=== PATIENT | male | born 1945 | race Caucasian/White ===

== ENCOUNTER 2020-07-06 19:27 | Inpatient (IN) | payer MEDICARE, OTHER ==
[2020-07-06] VITALS: BP 113/63
[~2020-07-06] VITALS: Ht 172.7 cm; Wt 66.0 kg
--- NOTE | 2020-07-06 19:48 | NUR ---
Patient BIB [facility] from a SNF for c/o CP+SOB. On the field patient was given nitro spray x1, and aspirin 162mg PO with no relief. Patient A/Ox4. Is able to speak but in short sentences due to SOB. Patient RR tachypneic, labored, and shallow. Reports dull, left sided CP that occasionally radiates to the right. Denies any n/v/d, or any gu distress. Patient in bed at lowest position, sr upx2, call light within reach. Safety precautions implemented per protocol.
[2020-07-06] MEDS ORDERED: ACETAMINOPHEN ES 500 MG TABLET PO ONE (20:00)
[2020-07-06] MEDS ORDERED: IV NS 1000 ML 1,000 ML IV ONE (20:00)
[2020-07-06] MEDS ORDERED: BENZONATATE 100 MG CAPSULE PO ONE (20:00)
[2020-07-06 20:07] LABS: BASOPHILS % (AUTO) 0.4 % (0.0-2.0); EOSINOPHILS # (AUTO) 0.1 K/uL (0.0-0.7); EOSINOPHILS % (AUTO) 1.4 % (0.0-7.0); HEMATOCRIT 33.1 % (36.7-47.1); HEMOGLOBIN 11.2 g/dL (12.5-16.3); LYMPHOCYTES # (AUTO) 1.4 K/uL (20.0-40.0); LYMPHOCYTES % (AUTO) 18.7 % (20.5-51.5); MEAN CORPUSCULAR HEMOGLOBIN 31.8 uug (23.8-33.4); MEAN CORPUSCULAR HGB CONC 34 g/dL (32.5-36.3); MEAN CORPUSCULAR VOLUME 94.1 fL (73.0-96.2); MONOCYTES % (AUTO) 13.2 % (0.0-11.0); NEUTROPHILS # (AUTO) 4.9 K/uL (1.8-8.9); NEUTROPHILS % (AUTO) 66.3 % (38.5-71.5); PLATELET COUNT (AUTO) 295 K/uL (152-348); RED BLOOD CELL COUNT(AUTO) 3.52 MIL/uL (4.06-5.63); WHITE BLOOD COUNT (AUTO) 7.4 K/uL (3.6-10.2)
[2020-07-06] MEDS ORDERED: ACETAMINOPHEN ES 500 MG TABLET ONE (20:09)
[2020-07-06] MEDS ORDERED: BENZONATATE 100 MG CAPSULE ONE (20:09)
[2020-07-06] MEDS ORDERED: ASPI81TA31 PO (20:11)
[2020-07-06] MEDS ORDERED: NA P133E RC (20:11)
[2020-07-06] MEDS ORDERED: MULT-213 PO (20:11)
[2020-07-06] MEDS ORDERED: BISA10SU61 RC (20:11)
[2020-07-06] MEDS ORDERED: TAMS-3 PO (20:11)
[2020-07-06] MEDS ORDERED: PANT40TA2 PO (20:11)
[2020-07-06] MEDS ORDERED: FINA5TAB11 PO (20:11)
[2020-07-06] MEDS ORDERED: PRED5DRO4 LEFTEYE (20:11)
[2020-07-06] MEDS ORDERED: ASCO500C18 PO (20:11)
[2020-07-06] MEDS ORDERED: SENN-86 PO (20:11)
[2020-07-06] MEDS ORDERED: CHOL10002 PO (20:11)
[2020-07-06] MEDS ORDERED: ACET-2154 PO (20:11)
[2020-07-06] MEDS ORDERED: KETO10DR3 RIGHTEYE (20:11)
[2020-07-06] MEDS ORDERED: METO25TA6 PO (20:11)
[2020-07-06] MEDS ORDERED: HYPR15DR4 OP (20:11)
[2020-07-06] MEDS ORDERED: DOCU100C36 PO (20:11)
[2020-07-06] MEDS ORDERED: BENZ-13 PO (20:11)
[2020-07-06] MEDS ORDERED: ZINC1CAP2 PO (20:11)
[2020-07-06] MEDS ORDERED: ENOX40DI SQ (20:11)
[2020-07-06] MEDS ORDERED: ALBU18HF2 INH (20:11)
[2020-07-06] MEDS ORDERED: MAGN400O6 PO (20:11)
[2020-07-06] MEDS ORDERED: OLOP2.5D12 LEFTEYE (20:11)
[2020-07-06] MEDS ORDERED: FLUT16SP NS (20:11)
[2020-07-06] MEDS ORDERED: atropine sulfate RIGHTEYE (20:11)
[2020-07-06] MEDS ORDERED: MONT10TA33 PO (20:11)
[2020-07-06 20:18] LABS: CREATININE 1.3 mg/dL (0.6-1.3); POTASSIUM 4.7 mmol/L (3.5-5.1)
[2020-07-06] MEDS ORDERED: CEFTRIAXONE 1 G in IV DEXTROSE 5% 50 ML IV ONE (20:30)
[2020-07-06] MEDS ORDERED: DEXAMETHASONE SOD PHOSPHATE 4 MG INJ IV ONE (20:30)
[2020-07-06] MEDS ORDERED: AZITHROMYCIN IV 500 MG in IV DEXTROSE 5% 250 ML IV ONE (20:30)
[2020-07-06 20:38] LABS: BILIRUBIN,TOTAL 0.7 mg/dL (0.2-1.0); TOTAL PROTEIN, SERUM 6.7 g/dL (6.4-8.2)
--- NOTE | 2020-07-06 21:00 | NUR ---
Noticed that patient had a hx of COPD, NRB removed immediately. Patient was on 10L NRB, and was downgraded to NC 3L. Patient oxygen saturation maintained well over 92%.
[2020-07-06] MEDS ORDERED: CEFTRIAXONE /D5W 50ML IVPB **ER PYXIS IV ONE (21:10)
[2020-07-06] MEDS ORDERED: AZITHROMYCIN 500MG/ D5W 250ML IVPB **ER PYXIS ONLY IV ONE (21:10)
[2020-07-06] MEDS ORDERED: DEXAMETHASONE SOD PHOSPHATE 4 MG INJ ONE (21:11)
[2020-07-06] MEDS ORDERED: ACETAMINOPHEN 325 MG TABLET PO PRN (21:30)
[2020-07-06] MEDS ORDERED: ALBUTEROL SULFATE 8 GM HFA.AER.AD IH PRN (21:30)
[2020-07-06] MEDS ORDERED: ONDANSETRON 4 MG/2 ML VIAL IV PRN (21:30)
--- NOTE | 2020-07-06 21:33 | NUR ---
Report given to ALAN Maher patient will be going to room 211
[2020-07-06] MEDS ORDERED: BENZONATATE 100 MG CAPSULE PO PRN (21:45)
[2020-07-06] MEDS ORDERED: BISACODYL 10 MG SUPP.RECT RC PRN (21:45)
--- NOTE | 2020-07-06 21:50 | NUR ---
Received patient via gurney from ED admitted for COVID 19 PNA. Pt AAOx4. No s/s of acute distress at this time. Pt on 3L NC O2 @ 96%, SOB upon exertion. 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 Left AC IV patent and intact. Pt stated they use eye drops for glaucoma and s/p cataract extraction. Notified Dr. Bell for medication reconciliation. Isolation measures initiated. Bed locked in low position, call light within reach, safety measures in place.
--- NOTE | 2020-07-06 22:21 | NUR ---
Patient transported to TELE in stable condition.
[2020-07-06] MEDS ORDERED: CEFEPIME HCL 2 G in IV DEXTROSE 5% 100 ML IV SCH (22:34)
[2020-07-06] MEDS ORDERED: PRED5DRO24 LEFTEYE (23:27)
[2020-07-06] MEDS ORDERED: KETO5DRO9 RIGHTEYE (23:27)
[2020-07-06] MEDS ORDERED: VANCOMYCIN IV 1,500 MG in IV DEXTROSE 5% 500 ML IV ONE (23:59)
[2020-07-07] VITALS: BP 113/63
[2020-07-07] MEDS ORDERED: CEFEPIME HCL 1 G VIAL ONE (00:04)
[2020-07-07] MEDS ORDERED: VANCOMYCIN 1000 MG VIAL ONE (00:04)
[2020-07-07] MEDS ORDERED: VANCOMYCIN HCL 500 MG VIAL ONE (00:04)
[2020-07-07 04:00] VITALS: BP 92/52
--- NOTE | 2020-07-07 06:30 | NUR ---
Pt resting in bed AAOx3-4. No s/s of acute distress. Pt on 3L NC with O2 @ 92%. Pt stand by assist with BSC, while doing rounds pt found moving down in bed to disable bed alarm. Reinforced patient teaching for safety measures and to use call light for assistance. Endorsed to oncoming shift. NSR on tele. Left FA IV patent and intact. Safety measures and isolation precautions in place.
[2020-07-07 06:52] LABS: BASOPHILS % (AUTO) 0.2 % (0.0-2.0); HEMATOCRIT 32.2 % (36.7-47.1); HEMOGLOBIN 11.2 g/dL (12.5-16.3); LYMPHOCYTES # (AUTO) 0.7 K/uL (20.0-40.0); LYMPHOCYTES % (AUTO) 14.2 % (20.5-51.5); MEAN CORPUSCULAR HEMOGLOBIN 32.5 uug (23.8-33.4); MEAN CORPUSCULAR HGB CONC 35 g/dL (32.5-36.3); MEAN CORPUSCULAR VOLUME 93.8 fL (73.0-96.2); MONOCYTES # (AUTO) 0.1 K/uL (2.0-10.0); MONOCYTES % (AUTO) 3.1 % (0.0-11.0); NEUTROPHILS # (AUTO) 3.9 K/uL (1.8-8.9); NEUTROPHILS % (AUTO) 82.5 % (38.5-71.5); PLATELET COUNT (AUTO) 319 K/uL (152-348); RED BLOOD CELL COUNT(AUTO) 3.43 MIL/uL (4.06-5.63); WHITE BLOOD COUNT (AUTO) 4.7 K/uL (3.6-10.2)
[2020-07-07 07:12] LABS: BILIRUBIN,TOTAL 0.3 mg/dL (0.2-1.0); CREATININE 1.1 mg/dL (0.6-1.3); POTASSIUM 4.5 mmol/L (3.5-5.1); TOTAL PROTEIN, SERUM 6.7 g/dL (6.4-8.2)
[2020-07-07] MEDS ORDERED: ALBUTEROL SULFATE 2.5 MG/ 0.5 ML NEBU NEB PRN (07:15)
[2020-07-07 07:53] VITALS: BP 104/62
--- NOTE | 2020-07-07 08:02 | NUR ---
Received in bed, awake and conversant. ON 3Lpm via nc. O2 saturation noted 93%. No acute distress noted. Bed kept low. Patient encouraged to ask for assistance. Call light kept within reach. No complaints at this time. Will continue to monitor.
[2020-07-07] MEDS: BLOOD SUGAR DIAGNOSTIC 1 EACH STRIP VI SCH ×4 (08:30→20:35)
[2020-07-07] MEDS ORDERED: DEXTROSE 50% 50 ML DISP.SYRIN IV PRN (08:30)
[2020-07-07] MEDS: FINASTERIDE 5 MG TABLET PO SCH (08:36)
[2020-07-07] MEDS: CHOLECALCIFEROL 1,000 UNIT TABLET PO SCH (08:36)
[2020-07-07] MEDS: METOPROLOL TARTRATE 25 MG TABLET PO SCH ×2 (08:36→20:40)
[2020-07-07] MEDS: TAMSULOSIN HCL 0.4 MG CAP.SR.24H PO SCH (08:36)
[2020-07-07] MEDS: ASPIRIN 81 MG TAB.CHEW PO SCH (08:37)
[2020-07-07] MEDS: DOCUSATE SODIUM 100 MG CAPSULE PO SCH ×2 (08:37→16:53)
[2020-07-07] MEDS: ZINC SULFATE 220 MG CAPSULE PO SCH (08:37)
[2020-07-07] MEDS: ENOXAPARIN SODIUM 40 MG/0.4 ML DISP.SYRIN SQ SCH (08:39)
[2020-07-07] MEDS ORDERED: DEXAMETHASONE SOD PHOSPHATE 4 MG INJ IV SCH (09:00)
[2020-07-07] MEDS ORDERED: FLUTICASONE PROP NASAL SPRAY 16 GM BOTTLE NS SCH (09:00)
[2020-07-07 11:00] VITALS: BP 123/64
--- NOTE | 2020-07-07 11:10 | NUR ---
Patient on 3Lpm via nc. Alert and oriented, able to make needs known. PT initiated exercises at edge of bed with min assist but patient unable to tolerate, desaturated to 88% and noted with coughing episodes. Patient kept in bed. Per PT will follow up tomorrow. Patient encouraged to call for assistance. He verbalized understanding. Call light placed within reach. O2 saturation went up to 91%. Will continue to monitor.
[2020-07-07] MEDS: INSULIN REGULAR, HUMAN 300 UNIT/3 ML VIAL SQ PRN ×3 (12:15→20:37)
[2020-07-07] MEDS: FLUTICASONE PROP NASAL SPRAY 16 GM BOTTLE NS SCH (13:19)
[2020-07-07] MEDS: DEXAMETHASONE SOD PHOSPHATE 4 MG INJ IV SCH ×2 (14:15→22:28)
[2020-07-07] MEDS: VANCOMYCIN IV 750 MG in IV DEXTROSE 5% 250 ML IV SCH (14:16)
[2020-07-07 14:31] VITALS: BP 122/71
--- NOTE | 2020-07-07 19:41 | NUR ---
Patient is resting in bed. No sign of distress noted. All medications given as ordered. Safety precautions are in place. Will endorse to oncoming nurse.
[2020-07-07 20:00] VITALS: BP 128/67
[2020-07-07] MEDS: OLOPATADINE 0.1% OPHT DROP 5 ML BOTTLE OP SCH (20:31)
[2020-07-07] MEDS: prednisoLONE ACET 1% OPHT DROP 5 ML BOTTLE OP SCH (20:31)
[2020-07-07] MEDS: ATROPINE SULFATE 1% OPHT DROP 2 ML OP SCH (20:31)
[2020-07-07] MEDS: SENNOSIDES/DOCUSATE SODIUM TABLET PO SCH (20:34)
[2020-07-07] MEDS: MONTELUKAST SODIUM 10 MG TABLET PO SCH (20:35)
[2020-07-07] MEDS: MIRALAX 17 GM POWD.PACK PO PRN (20:40)
[2020-07-07] MEDS ORDERED: KETOTIFEN OP SCH (21:00)
[2020-07-07] MEDS: CEFEPIME HCL 2 G in IV DEXTROSE 5% 100 ML IV SCH (22:28)
[2020-07-08] VITALS: BP 105/52
[2020-07-08] MEDS: VANCOMYCIN IV 750 MG in IV DEXTROSE 5% 250 ML IV SCH ×2 (02:20→14:00)
[2020-07-08 04:12] VITALS: BP 112/63
[2020-07-08] MEDS: DEXAMETHASONE SOD PHOSPHATE 4 MG INJ IV SCH ×3 (06:32→21:20)
[2020-07-08] MEDS: PANTOPRAZOLE SODIUM 40 MG TABLET.DR PO SCH (06:32)
[2020-07-08 06:58] LABS: HEMATOCRIT 34.7 % (36.7-47.1); HEMOGLOBIN 11.6 g/dL (12.5-16.3); LYMPHOCYTES # (AUTO) 1.6 K/uL (20.0-40.0); LYMPHOCYTES % (AUTO) 8.6 % (20.5-51.5); MEAN CORPUSCULAR HEMOGLOBIN 31.4 uug (23.8-33.4); MEAN CORPUSCULAR HGB CONC 33 g/dL (32.5-36.3); MEAN CORPUSCULAR VOLUME 93.9 fL (73.0-96.2); MONOCYTES % (AUTO) 5.5 % (0.0-11.0); NEUTROPHILS # (AUTO) 15.6 K/uL (1.8-8.9); NEUTROPHILS % (AUTO) 85.9 % (38.5-71.5); PLATELET COUNT (AUTO) 437 K/uL (152-348); RED BLOOD CELL COUNT(AUTO) 3.69 MIL/uL (4.06-5.63); WHITE BLOOD COUNT (AUTO) 18.2 K/uL (3.6-10.2)
[2020-07-08 07:11] LABS: CREATININE 1.3 mg/dL (0.6-1.3); MAGNESIUM 2.4 mg/dL (1.8-2.4); PHOSPHOROUS 3.2 mg/dL (2.5-4.9); POTASSIUM 4.6 mmol/L (3.5-5.1); URIC ACID 5.4 mg/dL (3.5-7.2)
[2020-07-08 07:23] LABS: THYROID STIMULATING HORMONE 0.866 mIU/mL (0.358-3.740)
[2020-07-08] MEDS: BLOOD SUGAR DIAGNOSTIC 1 EACH STRIP VI SCH ×4 (07:30→21:09)
[2020-07-08] MEDS: FINASTERIDE 5 MG TABLET PO SCH (08:00)
[2020-07-08] MEDS: DOCUSATE SODIUM 100 MG CAPSULE PO SCH ×2 (08:00→16:23)
[2020-07-08] MEDS: CHOLECALCIFEROL 1,000 UNIT TABLET PO SCH (08:00)
[2020-07-08] MEDS: ASPIRIN 81 MG TAB.CHEW PO SCH (08:01)
[2020-07-08] MEDS: TAMSULOSIN HCL 0.4 MG CAP.SR.24H PO SCH (08:01)
[2020-07-08] MEDS: ZINC SULFATE 220 MG CAPSULE PO SCH (08:01)
[2020-07-08] MEDS: METOPROLOL TARTRATE 25 MG TABLET PO SCH ×2 (08:10→21:17)
[2020-07-08] MEDS: ENOXAPARIN SODIUM 40 MG/0.4 ML DISP.SYRIN SQ SCH (08:12)
[2020-07-08] MEDS: INSULIN REGULAR, HUMAN 300 UNIT/3 ML VIAL SQ PRN ×4 (08:13→21:18)
[2020-07-08] MEDS: FLUTICASONE PROP NASAL SPRAY 16 GM BOTTLE NS SCH (08:24)
[2020-07-08] MEDS: OLOPATADINE 0.1% OPHT DROP 5 ML BOTTLE OP SCH ×2 (08:24→21:17)
[2020-07-08] MEDS: prednisoLONE ACET 1% OPHT DROP 5 ML BOTTLE OP SCH ×2 (08:25→21:17)
[2020-07-08] MEDS: MIRALAX 17 GM POWD.PACK PO PRN ×2 (08:33→11:11)
[2020-07-08] MEDS ORDERED: prednisoLONE ACET 1% OPHT DROP 5 ML BOTTLE OP SCH (09:00)
[2020-07-08] MEDS ORDERED: OLOPATADINE 0.1% OPHT DROP 5 ML BOTTLE OP SCH (09:00)
[2020-07-08] MEDS ORDERED: POLYVINYL ALCOHOL OPHT DROPS 15 ML BOTTLE EACHEYE PRN (09:15)
[2020-07-08 09:59] LABS: ABG HCO3 18.8 mmol/L; ABG PCO2 27.6 mmHg (35.0-45.0); ABG PH 7.451 (7.350-7.450); ABG PO2 60.7 mmHg (75.0-100.0); ABG SITE RIGHT BRACHIAL; ABG TOTAL HEMOGLOBIN 11.5 G/dL (13.5-18.0); COHb 0.7 % (0.5-1.5); MetHb 0.4 % (0.0-1.5); O2Hb 90.4 % (94.0-97.0); VENT MODE Nasal Cannula
--- NOTE | 2020-07-08 10:39 | NUR ---
RECEIVED PATIENT AWAKE, ALERT AND ORIENTED X 3. VSS. SR ON MONITOR. ON 3L NC, SATURATION 92-93%. CONTINENT OF B/B. PATIENT ABLE TO AMBULATE WITH ASSISTANCE TO RESTROOM. IV ON LEFT FA 20G, FLUSHED AND PATENT. SAFETY PRECAUTIONS IN PLACE. ALL NEEDS MET AT THIS TIME. WILL CONTINUE TO MONITOR.
--- NOTE | 2020-07-08 11:30 | NUR ---
SPOKE WITH PATIENT'S SON - MARCELLUS, REGARDING PATIENT'S BELONGINGS THAT WERE DROPPED OFF LAST NIGHT. INFORMED SON THAT I DID NOT FIND ANY BELONGINGS AT PATIENT'S BEDSIDE BESIDES HIS GLASSES AND CELLPHONES (2). SPOKE WITH SECURITY REGARDING ISSUE AND WILL FOLLOW UP.
[2020-07-08 11:56] VITALS: BP 106/59
[2020-07-08 16:04] VITALS: BP 145/74
[2020-07-08 20:00] VITALS: BP 127/68
[2020-07-08] MEDS: MONTELUKAST SODIUM 10 MG TABLET PO SCH (21:13)
[2020-07-08] MEDS: SENNOSIDES/DOCUSATE SODIUM TABLET PO SCH (21:13)
[2020-07-08] MEDS: ATROPINE SULFATE 1% OPHT DROP 2 ML OP SCH (21:17)
[2020-07-08] MEDS: CEFEPIME HCL 2 G in IV DEXTROSE 5% 100 ML IV SCH (22:28)
[2020-07-09 00:19] VITALS: BP 111/69
[2020-07-09] MEDS: VANCOMYCIN IV 750 MG in IV DEXTROSE 5% 250 ML IV SCH ×2 (01:41→13:25)
[2020-07-09 05:19] VITALS: BP 118/62
[2020-07-09] MEDS: DEXAMETHASONE SOD PHOSPHATE 4 MG INJ IV SCH ×3 (05:39→21:26)
[2020-07-09] MEDS: BLOOD SUGAR DIAGNOSTIC 1 EACH STRIP VI SCH ×4 (06:12→21:14)
[2020-07-09] MEDS: PANTOPRAZOLE SODIUM 40 MG TABLET.DR PO SCH (06:12)
--- NOTE | 2020-07-09 06:31 | NUR ---
PATIENT ASLEEP IN BED. EASILY AROUSABLE. DENIES ANY PAIN. ON TELE SR. SLEPT AT SMALL INTERVALS THROUGHOUT THE NIGHT. CALL LIGHT IN REACH. ALL NEEDS ATTENDED. WILL CONTINUE TO MONITOR AND ASSESS.
[2020-07-09] MEDS: METOPROLOL TARTRATE 25 MG TABLET PO SCH ×2 (08:14→21:09)
[2020-07-09] MEDS: ASPIRIN 81 MG TAB.CHEW PO SCH (08:14)
[2020-07-09] MEDS: FINASTERIDE 5 MG TABLET PO SCH (08:14)
[2020-07-09] MEDS: DOCUSATE SODIUM 100 MG CAPSULE PO SCH ×2 (08:14→16:26)
[2020-07-09] MEDS: ZINC SULFATE 220 MG CAPSULE PO SCH (08:14)
[2020-07-09] MEDS: CHOLECALCIFEROL 1,000 UNIT TABLET PO SCH (08:14)
[2020-07-09] MEDS: ENOXAPARIN SODIUM 40 MG/0.4 ML DISP.SYRIN SQ SCH (08:28)
[2020-07-09] MEDS: FLUTICASONE PROP NASAL SPRAY 16 GM BOTTLE NS SCH (08:32)
[2020-07-09] MEDS: prednisoLONE ACET 1% OPHT DROP 5 ML BOTTLE OP SCH ×2 (08:33→21:18)
[2020-07-09] MEDS: OLOPATADINE 0.1% OPHT DROP 5 ML BOTTLE OP SCH ×2 (08:33→21:17)
[2020-07-09] MEDS: BENZONATATE 100 MG CAPSULE PO PRN ×2 (08:49→21:43)
[2020-07-09 10:59] VITALS: BP 95/55
[2020-07-09] MEDS: INSULIN REGULAR, HUMAN 300 UNIT/3 ML VIAL SQ PRN ×2 (11:12→16:55)
[2020-07-09 15:05] VITALS: BP 103/57
[2020-07-09 20:03] VITALS: BP 123/66
[2020-07-09] MEDS: CEFEPIME HCL 2 G in IV DEXTROSE 5% 100 ML IV SCH (20:59)
[2020-07-09] MEDS: MONTELUKAST SODIUM 10 MG TABLET PO SCH (21:01)
[2020-07-09] MEDS: SENNOSIDES/DOCUSATE SODIUM TABLET PO SCH (21:03)
[2020-07-09] MEDS: TAMSULOSIN HCL 0.4 MG CAP.SR.24H PO SCH (21:09)
[2020-07-09] MEDS: ATROPINE SULFATE 1% OPHT DROP 2 ML OP SCH (21:16)
[2020-07-10] MEDS: ALBUTEROL SULFATE 2.5 MG/3 ML NEBU IH PRN ×2 (00:14→21:55)
[2020-07-10 00:21] VITALS: BP 146/82
[2020-07-10] MEDS: VANCOMYCIN IV 750 MG in IV DEXTROSE 5% 250 ML IV SCH ×2 (01:20→14:04)
[2020-07-10 04:06] VITALS: BP 122/60
--- NOTE | 2020-07-10 05:26 | NUR ---
Received call from lab/Nick regarding Covid test result was indeterminate.Retest/Re -swab done and sent to lab.PAtient awake. Compliant with medication.Slept intermittently.No acute distress noted through out the shift.All needs anticipated and met accordingly.
[2020-07-10] MEDS: DEXAMETHASONE SOD PHOSPHATE 4 MG INJ IV SCH ×3 (05:42→21:23)
[2020-07-10] MEDS: PANTOPRAZOLE SODIUM 40 MG TABLET.DR PO SCH (06:20)
[2020-07-10] MEDS: BLOOD SUGAR DIAGNOSTIC 1 EACH STRIP VI SCH ×4 (06:33→21:19)
[2020-07-10 06:41] LABS: BASOPHILS % (AUTO) 0.1 % (0.0-2.0); HEMATOCRIT 31.6 % (36.7-47.1); HEMOGLOBIN 10.8 g/dL (12.5-16.3); LYMPHOCYTES # (AUTO) 1.3 K/uL (20.0-40.0); MEAN CORPUSCULAR HEMOGLOBIN 32.1 uug (23.8-33.4); MEAN CORPUSCULAR HGB CONC 34 g/dL (32.5-36.3); MEAN CORPUSCULAR VOLUME 93.8 fL (73.0-96.2); MONOCYTES # (AUTO) 1.1 K/uL (2.0-10.0); NEUTROPHILS # (AUTO) 10.2 K/uL (1.8-8.9); NEUTROPHILS % (AUTO) 80.9 % (38.5-71.5); PLATELET COUNT (AUTO) 445 K/uL (152-348); RED BLOOD CELL COUNT(AUTO) 3.37 MIL/uL (4.06-5.63); WHITE BLOOD COUNT (AUTO) 12.5 K/uL (3.6-10.2)
[2020-07-10 07:22] LABS: CREATININE 1.2 mg/dL (0.6-1.3); MAGNESIUM 2.2 mg/dL (1.8-2.4); PHOSPHOROUS 3.9 mg/dL (2.5-4.9); POTASSIUM 4.3 mmol/L (3.5-5.1)
[2020-07-10] MEDS: ENOXAPARIN SODIUM 40 MG/0.4 ML DISP.SYRIN SQ SCH (08:11)
[2020-07-10] MEDS: FLUTICASONE PROP NASAL SPRAY 16 GM BOTTLE NS SCH (08:11)
[2020-07-10] MEDS: prednisoLONE ACET 1% OPHT DROP 5 ML BOTTLE OP SCH ×2 (08:12→21:50)
[2020-07-10] MEDS: DOCUSATE SODIUM 100 MG CAPSULE PO SCH ×2 (08:12→16:02)
[2020-07-10] MEDS: ASPIRIN 81 MG TAB.CHEW PO SCH (08:12)
[2020-07-10] MEDS: OLOPATADINE 0.1% OPHT DROP 5 ML BOTTLE OP SCH ×2 (08:12→21:50)
[2020-07-10] MEDS: FINASTERIDE 5 MG TABLET PO SCH (08:13)
[2020-07-10] MEDS: METOPROLOL TARTRATE 25 MG TABLET PO SCH ×2 (08:13→21:14)
[2020-07-10] MEDS: ZINC SULFATE 220 MG CAPSULE PO SCH (08:13)
[2020-07-10] MEDS: CHOLECALCIFEROL 1,000 UNIT TABLET PO SCH (08:13)
[2020-07-10] MEDS: CEFEPIME HCL 2 G in IV DEXTROSE 5% 100 ML IV SCH ×2 (08:15→21:12)
[2020-07-10] MEDS: INSULIN REGULAR, HUMAN 300 UNIT/3 ML VIAL SQ PRN ×3 (11:02→22:03)
[2020-07-10 11:44] VITALS: BP 123/83
[2020-07-10 15:11] VITALS: BP 120/61
[2020-07-10 15:44] LABS: LYMPHOCYTES % (MANUAL) 16 % (20-40); MONOCYTES % (MANUAL) 4 % (2-10); NEUTROPHILS % (MANUAL) 79 % (42-75)
[2020-07-10] MEDS: TAMSULOSIN HCL 0.4 MG CAP.SR.24H PO SCH (21:13)
[2020-07-10] MEDS: MONTELUKAST SODIUM 10 MG TABLET PO SCH (21:13)
[2020-07-10] MEDS: SENNOSIDES/DOCUSATE SODIUM TABLET PO SCH (21:14)
[2020-07-10 21:17] VITALS: BP 137/66
[2020-07-10] MEDS: ATROPINE SULFATE 1% OPHT DROP 2 ML OP SCH (21:49)
[2020-07-11 01:30] VITALS: BP 148/71
[2020-07-11] MEDS: VANCOMYCIN IV 750 MG in IV DEXTROSE 5% 250 ML IV SCH ×2 (01:33→13:26)
[2020-07-11] MEDS: BENZONATATE 100 MG CAPSULE PO PRN (01:34)
[2020-07-11 04:00] VITALS: BP 115/71
[2020-07-11] MEDS: DEXAMETHASONE SOD PHOSPHATE 4 MG INJ IV SCH ×3 (05:20→21:00)
[2020-07-11] MEDS: PANTOPRAZOLE SODIUM 40 MG TABLET.DR PO SCH (06:05)
[2020-07-11] MEDS: BLOOD SUGAR DIAGNOSTIC 1 EACH STRIP VI SCH ×4 (06:05→20:58)
[2020-07-11] MEDS: DOCUSATE SODIUM 100 MG CAPSULE PO SCH ×2 (07:53→16:14)
[2020-07-11] MEDS: FINASTERIDE 5 MG TABLET PO SCH (07:53)
[2020-07-11] MEDS: CHOLECALCIFEROL 1,000 UNIT TABLET PO SCH (07:53)
[2020-07-11] MEDS: METOPROLOL TARTRATE 25 MG TABLET PO SCH ×2 (07:53→21:00)
[2020-07-11] MEDS: ASPIRIN 81 MG TAB.CHEW PO SCH (07:54)
[2020-07-11] MEDS: ZINC SULFATE 220 MG CAPSULE PO SCH (07:56)
[2020-07-11] MEDS: ENOXAPARIN SODIUM 40 MG/0.4 ML DISP.SYRIN SQ SCH (07:57)
[2020-07-11] MEDS: prednisoLONE ACET 1% OPHT DROP 5 ML BOTTLE OP SCH ×2 (08:03→21:13)
[2020-07-11] MEDS: OLOPATADINE 0.1% OPHT DROP 5 ML BOTTLE OP SCH ×2 (08:04→21:13)
[2020-07-11] MEDS: FLUTICASONE PROP NASAL SPRAY 16 GM BOTTLE NS SCH (08:04)
[2020-07-11] MEDS: CEFEPIME HCL 2 G in IV DEXTROSE 5% 100 ML IV SCH ×2 (08:06→20:53)
[2020-07-11 11:46] VITALS: BP 106/59
[2020-07-11] MEDS: INSULIN REGULAR, HUMAN 300 UNIT/3 ML VIAL SQ PRN (16:15)
[2020-07-11 16:22] VITALS: BP 100/55
[2020-07-11 20:01] VITALS: BP 116/70
[2020-07-11] MEDS: TAMSULOSIN HCL 0.4 MG CAP.SR.24H PO SCH (20:58)
[2020-07-11] MEDS: MONTELUKAST SODIUM 10 MG TABLET PO SCH (20:59)
[2020-07-11] MEDS: SENNOSIDES/DOCUSATE SODIUM TABLET PO SCH (20:59)
[2020-07-11] MEDS: ATROPINE SULFATE 1% OPHT DROP 2 ML OP SCH (21:13)
[2020-07-12 00:16] VITALS: BP 136/86
[2020-07-12] MEDS: VANCOMYCIN IV 750 MG in IV DEXTROSE 5% 250 ML IV SCH (02:47)
--- NOTE | 2020-07-12 04:15 | NUR ---
Patient slept intermittently with O2 at 2LPM via NC ,c/o mild SOB titrate O2 at 3-4 LPM .Patient denies pain.Ambulates to bathroom.Due meds given.All needs anticipated and met accordingly.
[2020-07-12 04:30] VITALS: BP 124/59
[2020-07-12] MEDS: DEXAMETHASONE SOD PHOSPHATE 4 MG INJ IV SCH ×3 (06:08→21:00)
[2020-07-12] MEDS: PANTOPRAZOLE SODIUM 40 MG TABLET.DR PO SCH (06:08)
[2020-07-12] MEDS: BLOOD SUGAR DIAGNOSTIC 1 EACH STRIP VI SCH ×4 (06:14→20:55)
[2020-07-12 06:54] LABS: CREATININE 1.2 mg/dL (0.6-1.3)
[2020-07-12 07:59] VITALS: BP 117/58
[2020-07-12] MEDS: CEFEPIME HCL 2 G in IV DEXTROSE 5% 100 ML IV SCH ×2 (09:20→21:02)
[2020-07-12] MEDS: FINASTERIDE 5 MG TABLET PO SCH (09:20)
[2020-07-12] MEDS: CHOLECALCIFEROL 1,000 UNIT TABLET PO SCH (09:20)
[2020-07-12] MEDS: DOCUSATE SODIUM 100 MG CAPSULE PO SCH ×2 (09:20→16:30)
[2020-07-12] MEDS: ASPIRIN 81 MG TAB.CHEW PO SCH (09:20)
[2020-07-12] MEDS: ZINC SULFATE 220 MG CAPSULE PO SCH (09:20)
[2020-07-12] MEDS: METOPROLOL TARTRATE 25 MG TABLET PO SCH ×2 (09:25→21:00)
[2020-07-12] MEDS: FLUTICASONE PROP NASAL SPRAY 16 GM BOTTLE NS SCH (09:26)
[2020-07-12] MEDS: ENOXAPARIN SODIUM 40 MG/0.4 ML DISP.SYRIN SQ SCH (09:26)
[2020-07-12] MEDS: prednisoLONE ACET 1% OPHT DROP 5 ML BOTTLE OP SCH ×2 (09:27→21:03)
[2020-07-12] MEDS: OLOPATADINE 0.1% OPHT DROP 5 ML BOTTLE OP SCH ×2 (09:27→21:04)
[2020-07-12 11:12] VITALS: BP 121/70
[2020-07-12] MEDS: INSULIN REGULAR, HUMAN 300 UNIT/3 ML VIAL SQ PRN ×2 (11:29→17:03)
[2020-07-12 15:04] VITALS: BP 109/58
[2020-07-12] MEDS ORDERED: VANCOMYCIN IV 750 MG in IV DEXTROSE 5% 250 ML IV SCH (20:00)
[2020-07-12 20:32] VITALS: BP 130/71
[2020-07-12] MEDS: SENNOSIDES/DOCUSATE SODIUM TABLET PO SCH (20:56)
[2020-07-12] MEDS: TAMSULOSIN HCL 0.4 MG CAP.SR.24H PO SCH (20:56)
[2020-07-12] MEDS: MONTELUKAST SODIUM 10 MG TABLET PO SCH (21:00)
[2020-07-12] MEDS: ATROPINE SULFATE 1% OPHT DROP 2 ML OP SCH (21:04)
[2020-07-13] MEDS ORDERED: VANCOMYCIN IV 750 MG in IV DEXTROSE 5% 250 ML IV SCH (02:00)
--- NOTE | 2020-07-13 03:00 | NUR ---
Patient is resting in bed. AxOx4, able to make needs known. No sign of distress noted. Denies any pain or discomfort. All medications given as ordered. Safety precautions are in place. Will endorse to oncoming nurse.
[2020-07-13 04:30] VITALS: BP 114/82
[2020-07-13] MEDS: DEXAMETHASONE SOD PHOSPHATE 4 MG INJ IV SCH ×2 (06:09→16:53)
[2020-07-13] MEDS: PANTOPRAZOLE SODIUM 40 MG TABLET.DR PO SCH (06:09)
[2020-07-13 06:28] LABS: BASOPHILS % (AUTO) 0.2 % (0.0-2.0); EOSINOPHILS % (AUTO) 0.1 % (0.0-7.0); HEMATOCRIT 34.1 % (36.7-47.1); HEMOGLOBIN 11.5 g/dL (12.5-16.3); LYMPHOCYTES # (AUTO) 1.4 K/uL (20.0-40.0); MEAN CORPUSCULAR HEMOGLOBIN 32.4 uug (23.8-33.4); MEAN CORPUSCULAR HGB CONC 34 g/dL (32.5-36.3); MONOCYTES # (AUTO) 0.8 K/uL (2.0-10.0); MONOCYTES % (AUTO) 7.6 % (0.0-11.0); NEUTROPHILS # (AUTO) 8.4 K/uL (1.8-8.9); NEUTROPHILS % (AUTO) 79.1 % (38.5-71.5); PLATELET COUNT (AUTO) 456 K/uL (152-348); RED BLOOD CELL COUNT(AUTO) 3.55 MIL/uL (4.06-5.63); WHITE BLOOD COUNT (AUTO) 10.6 K/uL (3.6-10.2)
[2020-07-13 06:53] LABS: CREATININE 1.1 mg/dL (0.6-1.3); MAGNESIUM 2.1 mg/dL (1.8-2.4); PHOSPHOROUS 4.2 mg/dL (2.5-4.9); POTASSIUM 4.2 mmol/L (3.5-5.1)
[2020-07-13] MEDS: BLOOD SUGAR DIAGNOSTIC 1 EACH STRIP VI SCH ×3 (07:02→17:04)
--- NOTE | 2020-07-13 07:30 | NUR ---
Received patient in bed, awake, alert and oriented. No sign of distress noted. Patient is on 2L of oxygen. Patient does experience some SOB on exertion. Patient denies any pain. Safety precautions are in place. Will continue to monitor.
[2020-07-13 07:47] VITALS: BP 117/59
[2020-07-13] MEDS: CEFEPIME HCL 2 G in IV DEXTROSE 5% 100 ML IV SCH (08:40)
[2020-07-13] MEDS: DOCUSATE SODIUM 100 MG CAPSULE PO SCH ×2 (08:41→16:53)
[2020-07-13] MEDS: ZINC SULFATE 220 MG CAPSULE PO SCH (08:41)
[2020-07-13] MEDS: ASPIRIN 81 MG TAB.CHEW PO SCH (08:41)
[2020-07-13] MEDS: CHOLECALCIFEROL 1,000 UNIT TABLET PO SCH (08:41)
[2020-07-13] MEDS: METOPROLOL TARTRATE 25 MG TABLET PO SCH (08:49)
[2020-07-13] MEDS: ENOXAPARIN SODIUM 40 MG/0.4 ML DISP.SYRIN SQ SCH (08:50)
[2020-07-13] MEDS: OLOPATADINE 0.1% OPHT DROP 5 ML BOTTLE OP SCH (08:52)
[2020-07-13] MEDS: FLUTICASONE PROP NASAL SPRAY 16 GM BOTTLE NS SCH (08:52)
[2020-07-13] MEDS: FINASTERIDE 5 MG TABLET PO SCH (08:52)
[2020-07-13] MEDS: prednisoLONE ACET 1% OPHT DROP 5 ML BOTTLE OP SCH (08:53)
[2020-07-13] MEDS ORDERED: GLUCERNA SHAKE VANILLA 237 ML CAN PO SCH (09:00)
[2020-07-13 11:04] VITALS: BP 111/58
[2020-07-13 14:28] VITALS: BP 101/54
[2020-07-13] MEDS ORDERED: PRED5DRO4 OP (16:46)
[2020-07-13] MEDS ORDERED: OLOPATADINE 0.1% OP (16:46)
[2020-07-13] MEDS ORDERED: ATROPINE SULFATE 1% OP (16:46)
[2020-07-13] MEDS ORDERED: BENZ-38 PO (16:46)
[2020-07-13] MEDS ORDERED: CEFE1VIA3 IV (16:46)
[2020-07-13] MEDS ORDERED: DEXA4VIA19 IV (16:46)
[2020-07-13] MEDS ORDERED: TAMS-3 PO (16:46)
[2020-07-13] MEDS ORDERED: FLUT16SP16 NS (16:46)
[2020-07-13] MEDS ORDERED: RXVAN XX (16:46)
[2020-07-13] MEDS ORDERED: NUT.237L28 PO (16:46)
[2020-07-13] MEDS ORDERED: POLY15DR27 EACHEYE (16:46)
[2020-07-13] MEDS ORDERED: PANT40TA2 PO (16:46)
--- NOTE | 2020-07-13 18:50 | NUR ---
Patient's discharge has been completed. Patient to be admitted to Acute Rehab Unit. All medications given as ordered. Discharge paperwork completed. Patient is on 2L of oxygen and stable. Safety precautions are in place. Will endorse to the oncoming nurse.
[2020-07-14] MEDS ORDERED: METO25TA6 PO (12:44)
== END 2020-07-13 19:45 | DRG 871 ==
LOC: ER 19:29 → TELE 21:50 → TELE3 07-10 18:30
PROVIDERS: ADMIT Internal Medicine; ATTEND Internal Medicine
DX: A41.9 Sepsis, unspecified organism (principal); G92 Toxic encephalopathy; J18.9 Pneumonia, unspecified organism; J96.01 Acute respiratory failure with hypoxia; E43 Unspecified severe protein-calorie malnutrition; J44.0 Chronic obstructive pulmonary disease with (acute) lower respiratory infection; D68.69 Other thrombophilia; J45.901 Unspecified asthma with (acute) exacerbation; E22.2 Syndrome of inappropriate secretion of antidiuretic hormone; H40.9 Unspecified glaucoma; D64.9 Anemia, unspecified; I10 Essential (primary) hypertension; F17.200 Nicotine dependence, unspecified, uncomplicated; K21.9 Gastro-esophageal reflux disease without esophagitis; R73.03 Prediabetes; Z95.1 Presence of aortocoronary bypass graft; Z87.01 Personal history of pneumonia (recurrent); N40.0 Benign prostatic hyperplasia without lower urinary tract symptoms; M19.90 Unspecified osteoarthritis, unspecified site; I25.10 Atherosclerotic heart disease of native coronary artery without angina pectoris; Z86.16 Personal history of COVID-19; Z68.22 Body mass index [BMI] 22.0-22.9, adult; E86.1 Hypovolemia; H54.62 Unqualified visual loss, left eye, normal vision right eye; T38.0X5A Adverse effect of glucocorticoids and synthetic analogues, initial encounter; Y92.89 Other specified places as the place of occurrence of the external cause; D72.828 Other elevated white blood cell count; Z20.822 Contact with and (suspected) exposure to COVID-19
CPT/HCPCS: 36415; 36600; 70030-TC; 71045; 83605; 83615; 83735; 84100; 84443; 84550; 85025; 85730; 86140; 87040; 93005; A4663; A9150; G0378; J0456; J0692; J0696; J1100; J1650; J1815; J2405; J2650; J3370; J3535; J7030; J7060; U0003

== ENCOUNTER 2020-07-13 17:10 | Inpatient (IN) | payer MEDICARE, OTHER ==
[~2020-07-13] VITALS: Ht 172.7 cm; Wt 73.5 kg
[~2020-07-13 17:10] MED LIST: ACET-2154 PO; ALBU18HF2 INH; ASCO500C18 PO; ASPI81TA31 PO; ATROPINE SULFATE 1% OP; BENZ-13 PO; BENZ-38 PO; BISA10SU61 RC; CEFE1VIA3 IV; CHOL10002 PO; DEXA4VIA19 IV; DOCU100C36 PO; ENOX40DI SQ; FINA5TAB11 PO; FLUT16SP NS; FLUT16SP16 NS; HYPR15DR4 OP; KETO5DRO9 RIGHTEYE; MAGN400O6 PO; METO25TA6 PO; MONT10TA33 PO; MULT-213 PO; NA P133E RC; NUT.237L28 PO; OLOP2.5D12 LEFTEYE; OLOPATADINE 0.1% OP; PANT40TA2 PO; POLY15DR27 EACHEYE; PRED5DRO24 LEFTEYE; PRED5DRO4 OP; RXVAN XX; SENN-86 PO; TAMS-3 PO; ZINC1CAP2 PO; atropine sulfate RIGHTEYE
[2020-07-13] MEDS ORDERED: BISACODYL 10 MG SUPP.RECT RC PRN (18:30)
[2020-07-13] MEDS ORDERED: FLEET ENEMA 133 ML BOTTLE RC PRN (18:30)
[2020-07-13] MEDS ORDERED: POLYVINYL ALCOHOL OPHT DROPS 15 ML BOTTLE EACHEYE PRN (18:30)
[2020-07-13 20:00] VITALS: BP 130/70
--- NOTE | 2020-07-13 20:30 | NUR ---
Admitted this 74 y/o Male from Tele transferee to ARU with admitting diagnosis of Acute Respiratory Failure, Covid PNA. Patient is AxOx4, not in any form of distress, on 2L NC O2 saturating @ 95%, no SOB noted at rest upon exertion SOB. Denies any pain or discomfort. Oriented patient continuity of care in the rehab program. Assisted with needs promptly. Skin assessment complete: left lower abdominal bruising noted. Admission photos taken and placed in chart. IV Left forearm 20G, intact and flushed. Belongings list completed and placed in chart. Call light and frequently used items placed within patient's reach. Informed Dr. Park regarding admission and MD admissions consultant. Dr. Gill made aware of admission for medication reconcile.
[2020-07-13] MEDS ORDERED: OLOPATADINE 0.1% OPHT DROP 5 ML BOTTLE OP SCH (21:00)
[2020-07-13] MEDS ORDERED: CEFEPIME HCL 1 G VIAL IV SCH (21:00)
[2020-07-13] MEDS ORDERED: ALBUTEROL SULFATE 2.5 MG/3 ML NEBU NEB PRN (21:00)
[2020-07-13] MEDS ORDERED: ATROPINE SULFATE 1% OPHT DROP 2 ML OP SCH (21:00)
[2020-07-13] MEDS ORDERED: prednisoLONE ACET 1% OPHT DROP 5 ML BOTTLE OP SCH (21:00)
[2020-07-13] MEDS ORDERED: Z GUARD REMEDY PASTE 57 GM TUBE TOP PRN (21:00)
--- NOTE | 2020-07-13 21:30 | NUR ---
Patient is anxious, reorientated. Patient remains calm, frequent room visits completed. Pt verbalizes he is comfortable. All needs attended to promptly. All due medication administered, tolerated well. Safety measure maintained. Call light and all personal items within pt reach. will continue plan of care.
[2020-07-13] MEDS: SENNOSIDES/DOCUSATE SODIUM TABLET PO SCH (21:37)
[2020-07-13] MEDS: TAMSULOSIN HCL 0.4 MG CAP.SR.24H PO SCH (21:37)
[2020-07-13] MEDS: MONTELUKAST SODIUM 10 MG TABLET PO SCH (21:37)
[2020-07-13] MEDS: DEXAMETHASONE SOD PHOSPHATE 4 MG INJ IV SCH (21:39)
[2020-07-13] MEDS ORDERED: VANCOMYCIN IV 1,250 MG in IV DEXTROSE 5% 250 ML IV ONE (22:00)
[2020-07-13] MEDS ORDERED: CEFEPIME HCL 1 G VIAL ONE (22:21)
[2020-07-13] MEDS ORDERED: VANCOMYCIN 1000 MG VIAL ONE (22:21)
[2020-07-13] MEDS ORDERED: VANCOMYCIN HCL 500 MG VIAL ONE (22:21)
[2020-07-13] MEDS: CEFEPIME HCL 1 G in IV DEXTROSE 5% 50 ML IV SCH (22:59)
--- NOTE | 2020-07-14 02:20 | NUR ---
Called pharmacy to verify if okay to administered Vanco dose. Per Pharmacy order, do not administer and get a STAT trough level done before administered. Notified pharmacy to dose. aware.
--- NOTE | 2020-07-14 03:19 | NUR ---
Vanco Trough level complete 12.1 notified pharmacy. Pharmacist Nora dosed the order 750mg. Acknowledge
[2020-07-14] MEDS ORDERED: VANCOMYCIN IV 750 MG in IV DEXTROSE 5% 250 ML IV ONE (03:30)
[2020-07-14 04:00] VITALS: BP 119/67
--- NOTE | 2020-07-14 04:19 | NUR ---
Establish new IV 20G Right Forearm , intact and patent running Vanco. Pt is resting. Needs attended too. Will continue to monitor.
[2020-07-14] MEDS: PANTOPRAZOLE SODIUM 40 MG TABLET.DR PO SCH (06:15)
--- NOTE | 2020-07-14 06:36 | NUR ---
patient had intermittent good sleep. Still very anxious, needs reorientation about plan of care. compliant with care. LFA IV infiltrated and discontinued. Safety measures maintained. Will continue plan of care and endorse oncoming nurse.
--- NOTE | 2020-07-14 07:30 | NUR ---
Received patient in bed, awake, alert and oriented times 4. Patient is on room air but has 2L PRN. Patient still report sob on exertion. No sign of distress noted. Safety precautions are in place. Will continue to monitor.
[2020-07-14 08:00] VITALS: BP 128/75
[2020-07-14] MEDS: CEFEPIME HCL 1 G in IV DEXTROSE 5% 50 ML IV SCH (08:35)
[2020-07-14] MEDS: DEXAMETHASONE SOD PHOSPHATE 4 MG INJ IV SCH ×2 (08:36→22:08)
[2020-07-14] MEDS: ASPIRIN 81 MG TAB.CHEW PO SCH (08:36)
[2020-07-14] MEDS: DOCUSATE SODIUM 100 MG CAPSULE PO SCH ×2 (08:36→17:07)
[2020-07-14] MEDS: CHOLECALCIFEROL 1,000 UNIT TABLET PO SCH (08:36)
[2020-07-14] MEDS: FLUTICASONE PROP NASAL SPRAY 16 GM BOTTLE NS SCH (08:36)
[2020-07-14] MEDS: FINASTERIDE 5 MG TABLET PO SCH (08:36)
[2020-07-14] MEDS: MULTIVIT, IRON, MIN NO. 8, FA TABLET PO SCH (08:36)
[2020-07-14] MEDS: GLUCERNA SHAKE VANILLA 237 ML CAN PO SCH (08:37)
--- NOTE | 2020-07-14 10:30 | NUR ---
Patient is off the floor for PT.
[2020-07-14] MEDS: OLOPATADINE 0.1% OPHT DROP 5 ML BOTTLE LEFTEYE SCH ×2 (12:11→21:00)
[2020-07-14] MEDS: prednisoLONE ACET 1% OPHT DROP 5 ML BOTTLE LEFTEYE SCH ×2 (12:11→21:38)
[2020-07-14] MEDS ORDERED: METO25TA6 PO (12:44)
--- NOTE | 2020-07-14 13:50 | NUR ---
INTERDISCIPLINARY TEAM CONFERENCE
[2020-07-14 16:15] VITALS: BP 121/63
--- NOTE | 2020-07-14 18:07 | NUR ---
Patient is resting in bed. No sign of distress noted. Patient is on room air saturating at 93-94%. Has 2L available when experiencing SOB. All medications given as ordered. Safety precautions are in place. Will endorse to oncoming nurse.
--- NOTE | 2020-07-14 19:30 | NUR ---
Received pt in bed. Alert and oriented x4. Pt is on room air but has 1.5 L PRN. IV on right forearm. No acute distress noted. Safety and comfort provided. Call light within reach. Will continue to monitor.
[2020-07-14 20:00] VITALS: BP 126/63
[2020-07-14] MEDS: ATROPINE SULFATE 1% OPHT DROP 2 ML RIGHTEYE SCH (21:00)
[2020-07-14] MEDS: SENNOSIDES/DOCUSATE SODIUM TABLET PO SCH (21:00)
[2020-07-14] MEDS: MONTELUKAST SODIUM 10 MG TABLET PO SCH (21:38)
[2020-07-14] MEDS: TAMSULOSIN HCL 0.4 MG CAP.SR.24H PO SCH (21:38)
[2020-07-14] MEDS: CEFEPIME HCL 2 G in IV DEXTROSE 5% 100 ML IV SCH (22:08)
[2020-07-14] MEDS: ACETAMINOPHEN 325 MG TABLET PO PRN (22:08)
[2020-07-15 04:00] VITALS: BP 113/63
[2020-07-15] MEDS ORDERED: VANCOMYCIN IV 750 MG in IV DEXTROSE 5% 250 ML IV SCH (04:00)
[2020-07-15] MEDS: PANTOPRAZOLE SODIUM 40 MG TABLET.DR PO SCH (06:43)
--- NOTE | 2020-07-15 07:00 | NUR ---
Pt is little anxious. No acute distress noted. Due med given. Safety measure maintained. Call light within reach. Will endorse AM nurse.
[2020-07-15] MEDS: FINASTERIDE 5 MG TABLET PO SCH (08:29)
[2020-07-15] MEDS: DOCUSATE SODIUM 100 MG CAPSULE PO SCH ×2 (08:29→16:39)
[2020-07-15] MEDS: CHOLECALCIFEROL 1,000 UNIT TABLET PO SCH (08:29)
[2020-07-15] MEDS: MULTIVIT, IRON, MIN NO. 8, FA TABLET PO SCH (08:29)
[2020-07-15] MEDS: ASPIRIN 81 MG TAB.CHEW PO SCH (08:29)
[2020-07-15] MEDS: DEXAMETHASONE SOD PHOSPHATE 4 MG INJ IV SCH ×2 (08:30→20:56)
[2020-07-15] MEDS: GLUCERNA SHAKE VANILLA 237 ML CAN PO SCH (08:30)
[2020-07-15 08:46] VITALS: BP 121/76
[2020-07-15] MEDS: OLOPATADINE 0.1% OPHT DROP 5 ML BOTTLE LEFTEYE SCH ×2 (08:52→20:56)
[2020-07-15] MEDS: FLUTICASONE PROP NASAL SPRAY 16 GM BOTTLE NS SCH (08:52)
[2020-07-15] MEDS: prednisoLONE ACET 1% OPHT DROP 5 ML BOTTLE LEFTEYE SCH ×2 (08:52→20:57)
[2020-07-15] MEDS: CEFEPIME HCL 2 G in IV DEXTROSE 5% 100 ML IV SCH (09:34)
[2020-07-15 15:39] VITALS: BP 107/61
--- NOTE | 2020-07-15 17:57 | NUR ---
NO S/S OF DISTRESS NOTED. ALL MEDICATIONS GIVEN PER MD ORDER. NO COMPLAINTS OF PAIN THROUGHOUT THE SHIFT. PATIENT ABLE TO WALK TO RESTROOM. IV ON RIGHT FA 20G ON HEPLOCK - FLUSHED AND PATENT. SAFETY PRECAUTIONS IN PLACE. ALL NEEDS MET AT THIS TIME.
[2020-07-15 20:07] VITALS: BP 112/62
[2020-07-15] MEDS: METOPROLOL TARTRATE 25 MG TABLET PO SCH (20:56)
[2020-07-15] MEDS: MONTELUKAST SODIUM 10 MG TABLET PO SCH (20:56)
[2020-07-15] MEDS: TAMSULOSIN HCL 0.4 MG CAP.SR.24H PO SCH (20:56)
[2020-07-15] MEDS: SENNOSIDES/DOCUSATE SODIUM TABLET PO SCH (20:56)
[2020-07-15] MEDS: ATROPINE SULFATE 1% OPHT DROP 2 ML RIGHTEYE SCH (20:57)
--- NOTE | 2020-07-15 22:00 | NUR ---
Received patient in bed, AXOX 4, anxious and able to make needs known. Patient is on 2L PRN saturating @96% SOB upon exertion. No acute distress noted. Denies any pain or discomfort. All due medications administered and tolerated well. Needs attended, kept comfortable. Safety precautions are in place. Will continue plan of care.
[2020-07-16 04:00] VITALS: BP 100/60
[2020-07-16] MEDS: PANTOPRAZOLE SODIUM 40 MG TABLET.DR PO SCH (06:28)
[2020-07-16 06:59] LABS: BASOPHILS % (AUTO) 0.1 % (0.0-2.0); EOSINOPHILS % (AUTO) 0.1 % (0.0-7.0); HEMATOCRIT 37.7 % (36.7-47.1); HEMOGLOBIN 12.5 g/dL (12.5-16.3); LYMPHOCYTES # (AUTO) 1.5 K/uL (20.0-40.0); LYMPHOCYTES % (AUTO) 15.9 % (20.5-51.5); MEAN CORPUSCULAR HEMOGLOBIN 31.9 uug (23.8-33.4); MEAN CORPUSCULAR HGB CONC 33 g/dL (32.5-36.3); MEAN CORPUSCULAR VOLUME 96.2 fL (73.0-96.2); MONOCYTES # (AUTO) 0.7 K/uL (2.0-10.0); MONOCYTES % (AUTO) 6.9 % (0.0-11.0); NEUTROPHILS # (AUTO) 7.5 K/uL (1.8-8.9); PLATELET COUNT (AUTO) 408 K/uL (152-348); RED BLOOD CELL COUNT(AUTO) 3.92 MIL/uL (4.06-5.63); WHITE BLOOD COUNT (AUTO) 9.8 K/uL (3.6-10.2)
[2020-07-16 07:45] LABS: BILIRUBIN,DIRECT 0.1 mg/dL (0.0-0.2); BILIRUBIN,TOTAL 0.4 mg/dL (0.2-1.0); MAGNESIUM 2.2 mg/dL (1.8-2.4); PHOSPHOROUS 4.3 mg/dL (2.5-4.9); POTASSIUM 4.5 mmol/L (3.5-5.1); TOTAL PROTEIN, SERUM 6.1 g/dL (6.4-8.2)
[2020-07-16 08:00] VITALS: BP 115/69
[2020-07-16] MEDS: ASPIRIN 81 MG TAB.CHEW PO SCH (08:33)
[2020-07-16] MEDS: CHOLECALCIFEROL 1,000 UNIT TABLET PO SCH (08:33)
[2020-07-16] MEDS: METOPROLOL TARTRATE 25 MG TABLET PO SCH ×2 (08:34→20:16)
[2020-07-16] MEDS: DEXAMETHASONE SOD PHOSPHATE 4 MG INJ IV SCH (08:34)
[2020-07-16] MEDS: MULTIVIT, IRON, MIN NO. 8, FA TABLET PO SCH (08:34)
[2020-07-16] MEDS: DOCUSATE SODIUM 100 MG CAPSULE PO SCH ×2 (08:34→16:08)
[2020-07-16] MEDS: FINASTERIDE 5 MG TABLET PO SCH (08:34)
[2020-07-16] MEDS: GLUCERNA SHAKE VANILLA 237 ML CAN PO SCH (08:35)
[2020-07-16] MEDS: FLUTICASONE PROP NASAL SPRAY 16 GM BOTTLE NS SCH (08:35)
[2020-07-16] MEDS: prednisoLONE ACET 1% OPHT DROP 5 ML BOTTLE LEFTEYE SCH ×2 (08:37→20:14)
[2020-07-16] MEDS: OLOPATADINE 0.1% OPHT DROP 5 ML BOTTLE LEFTEYE SCH ×2 (08:37→20:13)
--- NOTE | 2020-07-16 15:22 | NUR ---
patient is alert, oriented x4, verbally responsive, no sob, resp even nonlabored, skin warm and dry to touch, tolerated PT, OT well, no changes noted this shift
[2020-07-16 16:00] VITALS: BP 119/63
[2020-07-16 20:00] VITALS: BP 121/74
[2020-07-16 20:13] VITALS: BP 121/74
[2020-07-16] MEDS: TAMSULOSIN HCL 0.4 MG CAP.SR.24H PO SCH (20:15)
[2020-07-16] MEDS: MONTELUKAST SODIUM 10 MG TABLET PO SCH ×2 (20:16→21:00)
[2020-07-16] MEDS: ATROPINE SULFATE 1% OPHT DROP 2 ML RIGHTEYE SCH (20:17)
[2020-07-16] MEDS: SENNOSIDES/DOCUSATE SODIUM TABLET PO SCH ×2 (20:17→21:00)
--- NOTE | 2020-07-16 22:00 | NUR ---
awake,alertx4 no complaints in no respiratory distress
[2020-07-17 04:00] VITALS: BP 96/58
[2020-07-17] MEDS: PANTOPRAZOLE SODIUM 40 MG TABLET.DR PO SCH (06:00)
[2020-07-17] MEDS: ASPIRIN 81 MG TAB.CHEW PO SCH (08:00)
[2020-07-17] MEDS: CHOLECALCIFEROL 1,000 UNIT TABLET PO SCH (08:01)
[2020-07-17] MEDS: FINASTERIDE 5 MG TABLET PO SCH (08:01)
[2020-07-17] MEDS: DOCUSATE SODIUM 100 MG CAPSULE PO SCH ×2 (08:01→16:32)
[2020-07-17] MEDS: MULTIVIT, IRON, MIN NO. 8, FA TABLET PO SCH (08:01)
[2020-07-17] MEDS: METOPROLOL TARTRATE 25 MG TABLET PO SCH ×2 (08:03→20:37)
[2020-07-17] MEDS: OLOPATADINE 0.1% OPHT DROP 5 ML BOTTLE LEFTEYE SCH ×2 (08:04→20:34)
[2020-07-17] MEDS: GLUCERNA SHAKE VANILLA 237 ML CAN PO SCH (08:04)
[2020-07-17] MEDS: FLUTICASONE PROP NASAL SPRAY 16 GM BOTTLE NS SCH (08:06)
[2020-07-17] MEDS: prednisoLONE ACET 1% OPHT DROP 5 ML BOTTLE LEFTEYE SCH ×2 (08:06→20:35)
[2020-07-17 08:07] VITALS: BP 103/56
--- NOTE | 2020-07-17 11:09 | NUR ---
INDIVIDUALIZED PLAN OF CARE
[2020-07-17 15:56] VITALS: BP 120/60
[2020-07-17] MEDS: MAGNESIUM HYDROXIDE 30 ML LIQUID UDC PO PRN ×2 (16:56→22:08)
[2020-07-17 20:00] VITALS: BP 100/58
[2020-07-17] MEDS: TAMSULOSIN HCL 0.4 MG CAP.SR.24H PO SCH (20:35)
[2020-07-17] MEDS: MONTELUKAST SODIUM 10 MG TABLET PO SCH (20:36)
[2020-07-17] MEDS: SENNOSIDES/DOCUSATE SODIUM TABLET PO SCH (20:40)
[2020-07-17] MEDS: ATROPINE SULFATE 1% OPHT DROP 2 ML RIGHTEYE SCH (20:41)
[2020-07-17 20:46] VITALS: BP 100/58
[2020-07-17] MEDS: ACETAMINOPHEN 325 MG TABLET PO PRN (22:08)
--- NOTE | 2020-07-18 01:34 | NUR ---
aaox4 resting in bed upon initial rounds. all needs attended and met. compliant with meds. no acute distress noted. continent of bowel and bladder. At 0130am patient complained of chest pains, Vital signs taken BP 112/52 HR 69 pulse ox 95% on 2L. Dr Holguin aware. Patient thinks its indigestion, had Maalox earlier plus Tylenol. Stat EKG, troponin ordered. Will monitor patient. Holliday 5/325 1 tab given as ordered.
[2020-07-18] MEDS ORDERED: HYDROCODONE/APAP 5-325MG TABLET PO PRN (01:45)
[2020-07-18 04:00] VITALS: BP 98/50
[2020-07-18] MEDS: PANTOPRAZOLE SODIUM 40 MG TABLET.DR PO SCH (06:11)
--- NOTE | 2020-07-18 06:24 | NUR ---
End of shift notes: Patient slept at short intervals. Denies any chest pain so far but has a little discomfort in the abdomen. Patient been constipated. Prune juice given. Will monitor for BM. Voiding freely. Kept comfortable. Due meds given.
--- NOTE | 2020-07-18 07:30 | NUR ---
Received pt in bed, alert, awake, able to make needs known. No acute distress noted, respirations even with some SOB upon exertion. Pt on 1 LPM NC, O2 sat 96%. Pt somewhat anxious, reassured and redirected. R FA 20 [address] saline lock in place, patent, intact. Safety measures and fall precautions in place. Call light and belongings within reach. Will continue to monitor.
[2020-07-18 08:00] VITALS: BP 99/48
[2020-07-18] MEDS: METOPROLOL TARTRATE 25 MG TABLET PO SCH ×2 (09:00→21:00)
[2020-07-18] MEDS: CHOLECALCIFEROL 1,000 UNIT TABLET PO SCH (09:03)
[2020-07-18] MEDS: MULTIVIT, IRON, MIN NO. 8, FA TABLET PO SCH (09:04)
[2020-07-18] MEDS: DOCUSATE SODIUM 100 MG CAPSULE PO SCH ×2 (09:04→17:23)
[2020-07-18] MEDS: FINASTERIDE 5 MG TABLET PO SCH (09:04)
[2020-07-18] MEDS: ASPIRIN 81 MG TAB.CHEW PO SCH (09:04)
[2020-07-18] MEDS: GLUCERNA SHAKE VANILLA 237 ML CAN PO SCH (09:06)
[2020-07-18] MEDS: FLUTICASONE PROP NASAL SPRAY 16 GM BOTTLE NS SCH (09:10)
[2020-07-18] MEDS: prednisoLONE ACET 1% OPHT DROP 5 ML BOTTLE LEFTEYE SCH ×2 (09:10→20:01)
[2020-07-18] MEDS: OLOPATADINE 0.1% OPHT DROP 5 ML BOTTLE LEFTEYE SCH ×2 (09:12→20:01)
[2020-07-18 16:31] VITALS: BP 107/67
--- NOTE | 2020-07-18 19:30 | NUR ---
EOSS: Pt in bed, awake, alert x4. No acute distress noted, respirations even and unlabored. Pt on 1 LPM NC, O2 sat 97%. Dr. Mayen examined pt today, no new orders. All due medications given per order, no a/r noted. Per pt: 1 BM this shift. Safety measures and fall precautions maintained. Call light and belongings within reach. Will endorse care to cnc machinist 2nd shift.
[2020-07-18] MEDS: ATROPINE SULFATE 1% OPHT DROP 2 ML RIGHTEYE SCH (20:01)
[2020-07-18] MEDS: SENNOSIDES/DOCUSATE SODIUM TABLET PO SCH (20:02)
[2020-07-18] MEDS: MONTELUKAST SODIUM 10 MG TABLET PO SCH (20:02)
[2020-07-18] MEDS: TAMSULOSIN HCL 0.4 MG CAP.SR.24H PO SCH (20:02)
--- NOTE | 2020-07-18 20:28 | NUR ---
Pt received sitting up in bed, alert and oriented. Denies pain or SOB. Is sating at 97% on 1L NC. Bed is locked and in lowest position. Call light is within reach. No other issues or concerns at this time.
[2020-07-18 21:18] VITALS: BP 109/55
[2020-07-19] MEDS ORDERED: ONDANSETRON INJ 8 MG in IV NORMAL SALINE 50 ML IV PRN (05:15)
[2020-07-19] MEDS ORDERED: IV NORMAL SALINE 500 ML IV ONE ×2 (05:15→06:30)
[2020-07-19] MEDS ORDERED: ONDANSETRON 4 MG/2 ML VIAL ONE (05:42)
[2020-07-19 06:04] VITALS: BP 87/45
[2020-07-19] MEDS: PANTOPRAZOLE SODIUM 40 MG TABLET.DR PO SCH (06:04)
--- NOTE | 2020-07-19 06:59 | NUR ---
After second bolus of 500cc BP went up to 125/50
[2020-07-19 08:30] VITALS: BP 116/53
[2020-07-19] MEDS: METOPROLOL TARTRATE 25 MG TABLET PO SCH ×2 (09:00→21:05)
[2020-07-19] MEDS: ASPIRIN 81 MG TAB.CHEW PO SCH (09:07)
[2020-07-19] MEDS: MULTIVIT, IRON, MIN NO. 8, FA TABLET PO SCH (09:07)
[2020-07-19] MEDS: DOCUSATE SODIUM 100 MG CAPSULE PO SCH ×2 (09:07→18:06)
[2020-07-19] MEDS: FINASTERIDE 5 MG TABLET PO SCH (09:07)
[2020-07-19] MEDS: CHOLECALCIFEROL 1,000 UNIT TABLET PO SCH (09:32)
[2020-07-19] MEDS: GLUCERNA SHAKE VANILLA 237 ML CAN PO SCH (09:35)
[2020-07-19] MEDS: prednisoLONE ACET 1% OPHT DROP 5 ML BOTTLE LEFTEYE SCH ×2 (09:38→21:06)
[2020-07-19] MEDS: OLOPATADINE 0.1% OPHT DROP 5 ML BOTTLE LEFTEYE SCH ×2 (09:38→21:07)
[2020-07-19] MEDS: FLUTICASONE PROP NASAL SPRAY 16 GM BOTTLE NS SCH (09:39)
[2020-07-19 16:36] VITALS: BP 125/64
--- NOTE | 2020-07-19 19:30 | NUR ---
Received patient awake and alert and oriented x 4. Able to make needs known. Denies any pain/discomforts at this time. Safety measures and fall prevention maintained. Continue care as planned.
--- NOTE | 2020-07-19 19:30 | NUR ---
EOSS: Pt in bed, awake, alert x4. No acute distress noted, respirations even and unlabored. Pt on 1 LPM NC, O2 sat 97%. Pt noted with asymptomatic orthostatic BP during PT session, 0900 BP medications held. Drs. Mayen and Vamsi on unit, aware, new orders. Due medications given per order, no a/r noted. Redirection and reassurance PRN. Safety measures and fall precautions maintained. Call light and belongings within reach. Will endorse care to night filler.
--- NOTE | 2020-07-19 20:00 | NUR ---
Seen patient walking in the hallway with slow but steady gait. No s/s of SOB/SOBOE noted.
[2020-07-19 20:40] VITALS: BP 127/64
[2020-07-19] MEDS: MONTELUKAST SODIUM 10 MG TABLET PO SCH (21:04)
[2020-07-19] MEDS: SENNOSIDES/DOCUSATE SODIUM TABLET PO SCH (21:04)
[2020-07-19] MEDS: TAMSULOSIN HCL 0.4 MG CAP.SR.24H PO SCH (21:04)
[2020-07-19] MEDS: ATROPINE SULFATE 1% OPHT DROP 2 ML RIGHTEYE SCH (21:08)
[2020-07-19] MEDS ORDERED: MAG HYDROX/AL HYDROX/SIMETH 30 ML LIQUID UDC PO PRN (22:30)
--- NOTE | 2020-07-19 23:06 | NUR ---
Patient complaining of gastric discomforts, MD made aware with new order. Mylanta 30 ml was given as ordered and needed. Will monitor.
[2020-07-20 06:00] VITALS: BP 93/55
[2020-07-20] MEDS: PANTOPRAZOLE SODIUM 40 MG TABLET.DR PO SCH (06:26)
[2020-07-20 06:49] LABS: BASOPHILS % (AUTO) 0.4 % (0.0-2.0); EOSINOPHILS % (AUTO) 0.6 % (0.0-7.0); HEMATOCRIT 34.1 % (36.7-47.1); HEMOGLOBIN 11.5 g/dL (12.5-16.3); LYMPHOCYTES % (AUTO) 14.3 % (20.5-51.5); MEAN CORPUSCULAR HEMOGLOBIN 32.3 uug (23.8-33.4); MEAN CORPUSCULAR HGB CONC 34 g/dL (32.5-36.3); MEAN CORPUSCULAR VOLUME 95.9 fL (73.0-96.2); MONOCYTES # (AUTO) 0.6 K/uL (2.0-10.0); MONOCYTES % (AUTO) 8.5 % (0.0-11.0); NEUTROPHILS # (AUTO) 5.6 K/uL (1.8-8.9); NEUTROPHILS % (AUTO) 76.2 % (38.5-71.5); PLATELET COUNT (AUTO) 210 K/uL (152-348); RED BLOOD CELL COUNT(AUTO) 3.56 MIL/uL (4.06-5.63); WHITE BLOOD COUNT (AUTO) 7.3 K/uL (3.6-10.2)
--- NOTE | 2020-07-20 06:49 | NUR ---
Shift End Report: Vs stable. No further complaint of gastric discomforts after Mylanta administration. Slept good. Continue current rehab plan of care.
[2020-07-20 07:08] LABS: BILIRUBIN,TOTAL 0.4 mg/dL (0.2-1.0); CREATININE 1.1 mg/dL (0.6-1.3); MAGNESIUM 2.1 mg/dL (1.8-2.4); PHOSPHOROUS 3.4 mg/dL (2.5-4.9); POTASSIUM 4.3 mmol/L (3.5-5.1); TOTAL PROTEIN, SERUM 5.9 g/dL (6.4-8.2)
[2020-07-20 07:40] VITALS: BP 100/62
[2020-07-20] MEDS: DOCUSATE SODIUM 100 MG CAPSULE PO SCH ×2 (08:39→16:21)
[2020-07-20] MEDS: FINASTERIDE 5 MG TABLET PO SCH (08:39)
[2020-07-20] MEDS: ASPIRIN 81 MG TAB.CHEW PO SCH (08:39)
[2020-07-20] MEDS: MULTIVIT, IRON, MIN NO. 8, FA TABLET PO SCH (08:39)
[2020-07-20] MEDS: CHOLECALCIFEROL 1,000 UNIT TABLET PO SCH (08:39)
[2020-07-20] MEDS: OLOPATADINE 0.1% OPHT DROP 5 ML BOTTLE LEFTEYE SCH ×2 (08:50→20:41)
[2020-07-20] MEDS: FLUTICASONE PROP NASAL SPRAY 16 GM BOTTLE NS SCH (08:51)
[2020-07-20] MEDS: METOPROLOL TARTRATE 25 MG TABLET PO SCH ×2 (08:51→20:43)
[2020-07-20] MEDS: GLUCERNA SHAKE VANILLA 237 ML CAN PO SCH (09:04)
[2020-07-20] MEDS: prednisoLONE ACET 1% OPHT DROP 5 ML BOTTLE LEFTEYE SCH ×2 (09:05→20:41)
[2020-07-20] MEDS: ACETAMINOPHEN 325 MG TABLET PO PRN (16:20)
--- NOTE | 2020-07-20 18:00 | NUR ---
Patient remains alert, oriented x 4, not in any form of distress, on room air. He is compliant with medications and tolerated well. Complained of headache, given PRN tylenol as ordered with noted relief. Assisted with his needs promptly. Call light and frequently used items placed within patient's reach.
[2020-07-20 19:39] VITALS: BP 102/50
[2020-07-20] MEDS: TAMSULOSIN HCL 0.4 MG CAP.SR.24H PO SCH (20:41)
[2020-07-20] MEDS: MONTELUKAST SODIUM 10 MG TABLET PO SCH (20:41)
[2020-07-20] MEDS: SENNOSIDES/DOCUSATE SODIUM TABLET PO SCH (20:41)
[2020-07-20] MEDS: ATROPINE SULFATE 1% OPHT DROP 2 ML RIGHTEYE SCH (20:42)
--- NOTE | 2020-07-21 01:50 | NUR ---
Resting in bed upon initial rounds. Ambulates to the BR independently. Voiding well. Compliant with meds . Denies any pain nor any discomfort. O2 @ 2L via nasal cannula. pulse 0x94%. Will monitor patient.VSS.
[2020-07-21 04:00] VITALS: BP 102/58
[2020-07-21] MEDS: PANTOPRAZOLE SODIUM 40 MG TABLET.DR PO SCH (06:26)
--- NOTE | 2020-07-21 07:04 | NUR ---
End of shift notes: Complained of feeling dizzy, he said his BP was low. BP recheck 109/63 HR 75 Patient in bed. HOB up at all times. Will monitor patient's BP.
[2020-07-21 08:00] VITALS: BP 101/53
[2020-07-21] MEDS: DOCUSATE SODIUM 100 MG CAPSULE PO SCH ×2 (08:29→16:15)
[2020-07-21] MEDS: ASPIRIN 81 MG TAB.CHEW PO SCH (08:29)
[2020-07-21] MEDS: MULTIVIT, IRON, MIN NO. 8, FA TABLET PO SCH (08:29)
[2020-07-21] MEDS: CHOLECALCIFEROL 1,000 UNIT TABLET PO SCH (08:29)
[2020-07-21] MEDS: FINASTERIDE 5 MG TABLET PO SCH (08:29)
[2020-07-21] MEDS: prednisoLONE ACET 1% OPHT DROP 5 ML BOTTLE LEFTEYE SCH ×2 (08:30→20:43)
[2020-07-21] MEDS: OLOPATADINE 0.1% OPHT DROP 5 ML BOTTLE LEFTEYE SCH ×2 (08:30→20:44)
[2020-07-21] MEDS: FLUTICASONE PROP NASAL SPRAY 16 GM BOTTLE NS SCH (08:30)
[2020-07-21] MEDS: METOPROLOL TARTRATE 25 MG TABLET PO SCH ×2 (08:31→20:45)
[2020-07-21] MEDS: GLUCERNA SHAKE VANILLA 237 ML CAN PO SCH (08:31)
[2020-07-21 14:36] VITALS: BP 112/60
[2020-07-21] MEDS: ONDANSETRON 4 MG/2 ML VIAL IV PRN (15:21)
[2020-07-21] MEDS: ACETAMINOPHEN 325 MG TABLET PO PRN (15:30)
--- NOTE | 2020-07-21 15:32 | NUR ---
INTERDISCIPLINARY TEAM CONFERENCE
--- NOTE | 2020-07-21 15:40 | NUR ---
patient is alert, oriented x4, verbally responsive, no sob, resp even nonlabored, skin wam and dry to touch, patient complained feeling nauseous, zofran given as ordered, will continue to monitor for effectiveness, patient seems very anxious all the time, patient teaching provided to focus and about deep breathing, patient participated in deep breathing and felt better, offered breathing tx nebulizer, patient stated he feels better already, does not need it right now, will monitor, using 1 liter of supplemental oxygen, saturating at 93%, rechecked, needs attended timely, patient is independent with adls.
[2020-07-21 20:12] VITALS: BP 118/58
[2020-07-21] MEDS: TAMSULOSIN HCL 0.4 MG CAP.SR.24H PO SCH (20:43)
[2020-07-21] MEDS: MONTELUKAST SODIUM 10 MG TABLET PO SCH (20:43)
[2020-07-21] MEDS: SENNOSIDES/DOCUSATE SODIUM TABLET PO SCH (20:43)
[2020-07-21] MEDS: ATROPINE SULFATE 1% OPHT DROP 2 ML RIGHTEYE SCH (20:44)
--- NOTE | 2020-07-21 23:40 | NUR ---
aaox4 ambulatory OOB to the BR voiding well. No distress noted. BP 118/58 HR71 BP meds held. Will monitor patient's BP. Compliant with meds. Needs attended. O2 @ 1L via nasal cannula, pulse ox 93% Kept comfortable. Voiding well.
[2020-07-22 04:00] VITALS: BP 118/60
[2020-07-22] MEDS: ONDANSETRON 4 MG/2 ML VIAL IV PRN (06:18)
[2020-07-22] MEDS: PANTOPRAZOLE SODIUM 40 MG TABLET.DR PO SCH (06:23)
--- NOTE | 2020-07-22 06:34 | NUR ---
End of shift notes: Complained of feeling nauseous this am. Zofran given. Will monitor for relief. No acute distress noted. All needs attended and met.
[2020-07-22 07:42] VITALS: BP 85/51
--- NOTE | 2020-07-22 07:46 | NUR ---
patient stated he feels dizzy, nausea, blood pressure 85/51,pulse 78, however patient is alert, oriented x4,orally fluids given, continue to monitor closely
[2020-07-22 08:09] VITALS: BP 115/57
--- NOTE | 2020-07-22 08:10 | NUR ---
patient is alert, oriented x4, blood pressure is better 115/57, patient stated he still feels little dizzy, and nauseous, continue to monitor
[2020-07-22 08:38] LABS: BASOPHILS # (AUTO) 0.1 K/uL (0.0-8.0); BASOPHILS % (AUTO) 0.7 % (0.0-2.0); EOSINOPHILS % (AUTO) 0.3 % (0.0-7.0); HEMATOCRIT 39.4 % (36.7-47.1); HEMOGLOBIN 13.2 g/dL (12.5-16.3); LYMPHOCYTES # (AUTO) 2.1 K/uL (20.0-40.0); LYMPHOCYTES % (AUTO) 24.8 % (20.5-51.5); MEAN CORPUSCULAR HGB CONC 33 g/dL (32.5-36.3); MEAN CORPUSCULAR VOLUME 95.9 fL (73.0-96.2); MONOCYTES # (AUTO) 0.7 K/uL (2.0-10.0); MONOCYTES % (AUTO) 8.8 % (0.0-11.0); NEUTROPHILS # (AUTO) 5.6 K/uL (1.8-8.9); NEUTROPHILS % (AUTO) 65.4 % (38.5-71.5); PLATELET COUNT (AUTO) 209 K/uL (152-348); RED BLOOD CELL COUNT(AUTO) 4.11 MIL/uL (4.06-5.63); WHITE BLOOD COUNT (AUTO) 8.5 K/uL (3.6-10.2)
[2020-07-22] MEDS: FINASTERIDE 5 MG TABLET PO SCH (08:47)
[2020-07-22] MEDS: ASPIRIN 81 MG TAB.CHEW PO SCH (08:47)
[2020-07-22] MEDS: MULTIVIT, IRON, MIN NO. 8, FA TABLET PO SCH (08:48)
[2020-07-22] MEDS: DOCUSATE SODIUM 100 MG CAPSULE PO SCH ×2 (08:48→16:31)
[2020-07-22] MEDS: CHOLECALCIFEROL 1,000 UNIT TABLET PO SCH (08:48)
[2020-07-22] MEDS: FLUTICASONE PROP NASAL SPRAY 16 GM BOTTLE NS SCH (08:48)
[2020-07-22] MEDS: OLOPATADINE 0.1% OPHT DROP 5 ML BOTTLE LEFTEYE SCH ×2 (08:49→20:37)
[2020-07-22] MEDS: GLUCERNA SHAKE VANILLA 237 ML CAN PO SCH (08:49)
[2020-07-22] MEDS: prednisoLONE ACET 1% OPHT DROP 5 ML BOTTLE LEFTEYE SCH ×2 (08:49→20:37)
[2020-07-22] MEDS: METOPROLOL TARTRATE 25 MG TABLET PO SCH ×2 (08:50→20:38)
[2020-07-22 08:55] LABS: CREATININE 1.2 mg/dL (0.6-1.3); POTASSIUM 4.1 mmol/L (3.5-5.1)
[2020-07-22 09:09] VITALS: BP_SYST 86; BP_SYST 90; BP_SYST 94; BP_DIAS 50; BP_DIAS 58; BP_DIAS 60
--- NOTE | 2020-07-22 13:15 | NUR ---
pt returned post gait d/t increased coughing, desaturation and SOB. Pt left on 2.5Lo2 via NA, nursing made aware. pt tends to remove O2 when ambulating on his own to bathroom causing SOB, nursing aware.
[2020-07-22 14:49] VITALS: BP 100/53
--- NOTE | 2020-07-22 15:28 | NUR ---
Continue to reinforce need of supplemental o2 specially during ambulation, and monitor for sob during exertion, checked frequently, offered patient breathing tx, saturating 98% at 2.5 liter of o2 via nasal canula. patient is alert, oriented x4, verbally responsive.
--- NOTE | 2020-07-22 16:00 | NUR ---
received order from dr browne for routine albuterol HHN every 6 hours for sob.
[2020-07-22] MEDS ORDERED: ALBUTEROL SULFATE 2.5 MG/3 ML NEBU NEB SCH (18:00)
[2020-07-22] MEDS: ALBUTEROL SULFATE 2.5 MG/3 ML NEBU NEB SCH (19:18)
[2020-07-22 20:25] VITALS: BP 142/70
[2020-07-22] MEDS: MONTELUKAST SODIUM 10 MG TABLET PO SCH (20:28)
[2020-07-22] MEDS: SENNOSIDES/DOCUSATE SODIUM TABLET PO SCH (20:28)
[2020-07-22] MEDS: TAMSULOSIN HCL 0.4 MG CAP.SR.24H PO SCH (20:28)
[2020-07-22] MEDS: ATROPINE SULFATE 1% OPHT DROP 2 ML RIGHTEYE SCH (20:37)
[2020-07-22] MEDS: BENZONATATE 100 MG CAPSULE PO PRN (23:17)
[2020-07-23] MEDS: ALBUTEROL SULFATE 2.5 MG/3 ML NEBU NEB SCH ×4 (00:30→19:30)
[2020-07-23 04:00] VITALS: BP 94/55
[2020-07-23] MEDS: PANTOPRAZOLE SODIUM 40 MG TABLET.DR PO SCH (06:14)
[2020-07-23 08:11] VITALS: BP 91/63
[2020-07-23] MEDS: CHOLECALCIFEROL 1,000 UNIT TABLET PO SCH (08:55)
[2020-07-23] MEDS: MULTIVIT, IRON, MIN NO. 8, FA TABLET PO SCH (08:55)
[2020-07-23] MEDS: DOCUSATE SODIUM 100 MG CAPSULE PO SCH ×2 (08:55→17:13)
[2020-07-23] MEDS: ASPIRIN 81 MG TAB.CHEW PO SCH (08:55)
[2020-07-23] MEDS: GLUCERNA SHAKE VANILLA 237 ML CAN PO SCH (09:00)
[2020-07-23] MEDS: METOPROLOL TARTRATE 25 MG TABLET PO SCH ×2 (09:00→21:00)
[2020-07-23] MEDS: OLOPATADINE 0.1% OPHT DROP 5 ML BOTTLE LEFTEYE SCH ×2 (09:00→21:17)
[2020-07-23] MEDS: FINASTERIDE 5 MG TABLET PO SCH (09:00)
[2020-07-23] MEDS: prednisoLONE ACET 1% OPHT DROP 5 ML BOTTLE LEFTEYE SCH ×2 (09:01→21:17)
[2020-07-23] MEDS: FLUTICASONE PROP NASAL SPRAY 16 GM BOTTLE NS SCH (09:01)
[2020-07-23] MEDS ORDERED: IV NS 1000 ML 1,000 ML IV ONE (10:45)
[2020-07-23] MEDS: DEXAMETHASONE SOD PHOSPHATE 10 MG INJ IV SCH (10:59)
[2020-07-23] MEDS: ONDANSETRON 4 MG/2 ML VIAL IV PRN (11:00)
[2020-07-23 14:50] VITALS: BP 103/53
[2020-07-23] MEDS: BENZONATATE 100 MG CAPSULE PO PRN ×2 (17:14→21:23)
--- NOTE | 2020-07-23 17:51 | NUR ---
Patient is doing fairly, alert, oriented x4, noted with sob, breathing tx administered by RT, steroids administered as ordered, instructed patient to use incentive spirometer, continuos o2 2.5 liters via nasal canula, saturating at 91-93%, patient did not tolerate PT,OT today, stayed in bed most of the time.
--- NOTE | 2020-07-23 19:30 | NUR ---
Awake, very quiet, watching TV at this time. Denies any pain/discomforts. Tolerating O2 at 3L/min via NC at this time saturating 91%. Remind nurse about his medications due. Safety measures and fall prevention maintained. Continue care as planned.
[2020-07-23 20:00] VITALS: BP 103/53
[2020-07-23] MEDS: TAMSULOSIN HCL 0.4 MG CAP.SR.24H PO SCH (21:13)
[2020-07-23] MEDS: MONTELUKAST SODIUM 10 MG TABLET PO SCH (21:13)
[2020-07-23] MEDS: SENNOSIDES/DOCUSATE SODIUM TABLET PO SCH (21:13)
[2020-07-23] MEDS: ATROPINE SULFATE 1% OPHT DROP 2 ML RIGHTEYE SCH (21:18)
--- NOTE | 2020-07-23 22:51 | NUR ---
Patient got anxious and removed oxygen and starts desating. Refused O2 at this time stating that his O2 is too high for him. RT notified, at bedside explaining the importance of his O2. Will continue to monitor.
--- NOTE | 2020-07-23 23:03 | NUR ---
RT at bedside increased O2 to 20L Hi Flow at FIO2 at 70%. Will monitor.
[2020-07-24 00:32] VITALS: BP 143/72
--- NOTE | 2020-07-24 00:43 | NUR ---
So anxious, complaining that his o@ is too high. O2 sat checked 88% BP 143/72, 104. RT at bedside, increased O2 to 30L, FIO2 100%. RT explained to patient reasons why she's increasing the setting, patient agreed. Will continue to monitor.
[2020-07-24] MEDS: ALBUTEROL SULFATE 2.5 MG/3 ML NEBU NEB SCH ×2 (01:01→08:12)
[2020-07-24 04:00] VITALS: BP 104/56
[2020-07-24] MEDS: PANTOPRAZOLE SODIUM 40 MG TABLET.DR PO SCH (06:19)
--- NOTE | 2020-07-24 06:44 | NUR ---
Shift End Report: O2 at 30L/min with FIO@ of 100% well tolerated, saturating 98% at this time. Calm and quiet at this time. Less non productive cough. No s/s of respiratory distress. All needs attended and met. Continue rehab plan of care.
[2020-07-24 08:30] VITALS: BP 120/68
[2020-07-24] MEDS: MULTIVIT, IRON, MIN NO. 8, FA TABLET PO SCH (09:09)
[2020-07-24] MEDS: GLUCERNA SHAKE VANILLA 237 ML CAN PO SCH (09:09)
[2020-07-24] MEDS: DOCUSATE SODIUM 100 MG CAPSULE PO SCH (09:09)
[2020-07-24] MEDS: CHOLECALCIFEROL 1,000 UNIT TABLET PO SCH (09:09)
[2020-07-24] MEDS: ASPIRIN 81 MG TAB.CHEW PO SCH (09:09)
[2020-07-24] MEDS: METOPROLOL TARTRATE 25 MG TABLET PO SCH (09:09)
[2020-07-24] MEDS: FINASTERIDE 5 MG TABLET PO SCH (09:09)
[2020-07-24] MEDS: DEXAMETHASONE SOD PHOSPHATE 10 MG INJ IV SCH (09:11)
[2020-07-24] MEDS: prednisoLONE ACET 1% OPHT DROP 5 ML BOTTLE LEFTEYE SCH (09:24)
[2020-07-24] MEDS: FLUTICASONE PROP NASAL SPRAY 16 GM BOTTLE NS SCH (09:24)
[2020-07-24] MEDS: OLOPATADINE 0.1% OPHT DROP 5 ML BOTTLE LEFTEYE SCH (09:24)
[2020-07-24] MEDS ORDERED: ENOXAPARIN SODIUM 40 MG/0.4 ML DISP.SYRIN SQ SCH (11:00)
[2020-07-24 11:18] LABS: ABG BASE EXCESS -2.7 mmol/L; ABG HCO3 20.3 mmol/L; ABG PH 7.462 (7.350-7.450); ABG PO2 139.7 mmHg (75.0-100.0); ABG SITE RIGHT BRACHIAL; ABG TOTAL HEMOGLOBIN 10.7 G/dL (13.5-18.0); COHb 0.4 % (0.5-1.5); MetHb 0.2 % (0.0-1.5); O2Hb 98.4 % (94.0-97.0); VENT MODE vapotherm
--- NOTE | 2020-07-24 12:11 | NUR ---
PT RECEIVED ON VAPOTHERM 30 L / 100% FIO2 WITH SPO2 MAINTAINING AT 100%. FIO2 TITRATED DOWN TO 90% AND SPO2 MAINTAINING WITHIN NORMAL LIMITS. ABG ORDERED BY PER DR RODRIGUEZ AND PER RESULTS FIO2 TITRATED DOWN. FIO2 TITRATED DOWN TO 70%/30L BUT SPO2 COULD NOT MAINTAIN ABOVE 90%. PT CURRENTLY ON 80%/30L WITH SPO2 94%.
--- NOTE | 2020-07-24 12:39 | NUR ---
PER PULMONARY REQUEST THE MD WANT HIM TO BE D/C FROM ARU ADMITTED TO TELE D/T INABILITY TO MAINTAIN SATS ON HIGH LITERS OF O2
[2020-07-24 15:35] VITALS: BP 117/59
== END 2020-07-24 12:40 | disposition short-term general hospital (02) | DRG 189 ==
PROVIDERS: ADMIT Physical Medicine & Rehabilitation Pain Medicine; ATTEND Physical Medicine & Rehabilitation Pain Medicine
DX: J96.01 Acute respiratory failure with hypoxia (principal); E43 Unspecified severe protein-calorie malnutrition; G92 Toxic encephalopathy; J18.9 Pneumonia, unspecified organism; D68.59 Other primary thrombophilia; J45.901 Unspecified asthma with (acute) exacerbation; E87.1 Hypo-osmolality and hyponatremia; D64.9 Anemia, unspecified; H54.62 Unqualified visual loss, left eye, normal vision right eye; I10 Essential (primary) hypertension; Z86.16 Personal history of COVID-19; I25.10 Atherosclerotic heart disease of native coronary artery without angina pectoris; K21.9 Gastro-esophageal reflux disease without esophagitis; M19.90 Unspecified osteoarthritis, unspecified site; N40.0 Benign prostatic hyperplasia without lower urinary tract symptoms; R73.03 Prediabetes; Z95.1 Presence of aortocoronary bypass graft; I95.1 Orthostatic hypotension; Z87.01 Personal history of pneumonia (recurrent); K30 Functional dyspepsia; R53.81 Other malaise
CPT/HCPCS: 36415; 36600; 70030-TC; 71045; 83615; 83735; 84100; 85025; 86140; 93005; 93307; 94640; 94664; J0692; J1100; J2405; J2650; J3370; J3490; J3535; J7030; J7040; J7060; U0003

== ENCOUNTER 2020-07-24 12:53 | Inpatient (IN) | payer MEDICARE, OTHER ==
[~2020-07-24] VITALS: Ht 172.7 cm; Wt 73.5 kg
[~2020-07-24 12:53] MED LIST changes: -ASCO500C18 PO; -BENZ-13 PO; -ENOX40DI SQ; -FLUT16SP NS; -HYPR15DR4 OP; -KETO5DRO9 RIGHTEYE; -OLOP2.5D12 LEFTEYE; -PRED5DRO24 LEFTEYE; -ZINC1CAP2 PO; -atropine sulfate RIGHTEYE
[2020-07-24] MEDS ORDERED: MAGNESIUM HYDROXIDE 30 ML LIQUID UDC PO PRN (13:30)
[2020-07-24] MEDS ORDERED: BISACODYL 10 MG SUPP.RECT RC PRN (13:30)
[2020-07-24] MEDS ORDERED: ALBUTEROL SULFATE 8 GM HFA.AER.AD INH PRN (13:30)
[2020-07-24] MEDS ORDERED: FLEET ENEMA 133 ML BOTTLE RC PRN (13:30)
[2020-07-24] MEDS ORDERED: POLYVINYL ALCOHOL OPHT DROPS 15 ML BOTTLE EACHEYE PRN (13:30)
[2020-07-24] MEDS ORDERED: ALBUTEROL SULFATE 2.5 MG/ 0.5 ML NEBU NEB PRN (13:45)
[2020-07-24] MEDS: BENZONATATE 100 MG CAPSULE PO PRN (16:39)
[2020-07-24 18:20] VITALS: BP 117/59
[2020-07-24] MEDS: DOCUSATE SODIUM 100 MG CAPSULE PO SCH (18:21)
[2020-07-24] MEDS: METOPROLOL TARTRATE 25 MG TABLET PO SCH (18:21)
[2020-07-24 19:44] VITALS: BP 119/59
--- NOTE | 2020-07-24 20:09 | NUR ---
Received patient sleeping during initial rounds with HOB with continuos O2 at [place] setting of 80% FIO2 @30L, saturating 93%. No s/s of respiratory distress noted. HL RFA intact and patent, no s/s of infiltration noted. Safety measures and fall prevention maintained. Continue care as planned.
[2020-07-24] MEDS ORDERED: DEXAMETHASONE SOD PHOSPHATE 4 MG INJ IV SCH (21:00)
[2020-07-24] MEDS ORDERED: CEFEPIME HCL 1 G VIAL IV SCH (21:00)
[2020-07-24] MEDS: SENNOSIDES/DOCUSATE SODIUM TABLET PO SCH (21:10)
[2020-07-24] MEDS: TAMSULOSIN HCL 0.4 MG CAP.SR.24H PO SCH (21:11)
[2020-07-24] MEDS: MONTELUKAST SODIUM 10 MG TABLET PO SCH (21:11)
[2020-07-24] MEDS: OLOPATADINE 0.1% OPHT DROP 5 ML BOTTLE LEFTEYE SCH (21:17)
[2020-07-24] MEDS: prednisoLONE ACET 1% OPHT DROP 5 ML BOTTLE LEFTEYE SCH (21:18)
[2020-07-24] MEDS: ATROPINE SULFATE 1% OPHT DROP 2 ML RIGHTEYE SCH (21:19)
--- NOTE | 2020-07-24 21:44 | NUR ---
Patient verbalized feeling of disappointment and frustration the way he was treated. he stated that he's not happy being placed in seems like a cage/penitentiary cell with all the plastic cover zipped all the way always. he's requesting to be transferred next door where everything the door is always open. explained to the patient in the manner that he can understand fully the reason why his room was zipped and he verbalized understanding and agreed to the plan.
[2020-07-25 00:17] VITALS: BP 111/60
[2020-07-25 05:07] VITALS: BP 111/55
--- NOTE | 2020-07-25 06:19 | NUR ---
Shift End Report: VS stable. Been calmed and cooperative , No more complaint presented. Slept good with good oxygen saturation with same HI lashonda rating throughout 30L with 80% FIO2. All needs attended and met. Continue care as planned.
[2020-07-25] MEDS: PANTOPRAZOLE SODIUM 40 MG TABLET.DR PO SCH (06:34)
[2020-07-25 06:42] LABS: BASOPHILS % (AUTO) 0.1 % (0.0-2.0); EOSINOPHILS % (AUTO) 0.3 % (0.0-7.0); HEMATOCRIT 30.5 % (36.7-47.1); HEMOGLOBIN 10.2 g/dL (12.5-16.3); LYMPHOCYTES % (AUTO) 9.4 % (20.5-51.5); MEAN CORPUSCULAR HEMOGLOBIN 31.6 uug (23.8-33.4); MEAN CORPUSCULAR HGB CONC 33 g/dL (32.5-36.3); MEAN CORPUSCULAR VOLUME 94.5 fL (73.0-96.2); MONOCYTES # (AUTO) 0.7 K/uL (2.0-10.0); MONOCYTES % (AUTO) 6.4 % (0.0-11.0); NEUTROPHILS # (AUTO) 9.3 K/uL (1.8-8.9); NEUTROPHILS % (AUTO) 83.8 % (38.5-71.5); PLATELET COUNT (AUTO) 168 K/uL (152-348); RED BLOOD CELL COUNT(AUTO) 3.23 MIL/uL (4.06-5.63); WHITE BLOOD COUNT (AUTO) 11.1 K/uL (3.6-10.2)
[2020-07-25 06:53] LABS: PHOSPHOROUS 2.8 mg/dL (2.5-4.9); POTASSIUM 4.1 mmol/L (3.5-5.1)
[2020-07-25 07:13] LABS: MAGNESIUM 1.8 mg/dL (1.8-2.4)
[2020-07-25 08:00] VITALS: BP 111/69
[2020-07-25] MEDS: DEXAMETHASONE SOD PHOSPHATE 10 MG INJ IV SCH (08:50)
[2020-07-25] MEDS: CHOLECALCIFEROL 1,000 UNIT TABLET PO SCH (08:50)
[2020-07-25] MEDS: FINASTERIDE 5 MG TABLET PO SCH (08:50)
[2020-07-25] MEDS: ASPIRIN 81 MG TAB.CHEW PO SCH (08:51)
[2020-07-25] MEDS: DOCUSATE SODIUM 100 MG CAPSULE PO SCH ×2 (08:51→17:07)
[2020-07-25] MEDS: METOPROLOL TARTRATE 25 MG TABLET PO SCH ×2 (08:52→17:00)
[2020-07-25] MEDS: GLUCERNA SHAKE VANILLA 237 ML CAN PO SCH (08:52)
[2020-07-25] MEDS: OLOPATADINE 0.1% OPHT DROP 5 ML BOTTLE LEFTEYE SCH ×2 (09:02→21:27)
[2020-07-25] MEDS: prednisoLONE ACET 1% OPHT DROP 5 ML BOTTLE LEFTEYE SCH ×2 (09:02→21:27)
[2020-07-25] MEDS: FLUTICASONE PROP NASAL SPRAY 16 GM BOTTLE NS SCH (09:07)
[2020-07-25] MEDS: BENZONATATE 100 MG CAPSULE PO PRN (14:17)
[2020-07-25 15:54] VITALS: BP 99/57
--- NOTE | 2020-07-25 19:55 | NUR ---
Received patient in bed awake alert x4 with oxygen high flow of 65% 30L saturating at 94-93%.HOB elevated.IV on right forearm patent and intact.Patient denies pain at this time.Compliant with medication.Continue safety measures.Will continue to monitor.
[2020-07-25 20:16] VITALS: BP 126/58
[2020-07-25] MEDS: SENNOSIDES/DOCUSATE SODIUM TABLET PO SCH (21:20)
[2020-07-25] MEDS: MONTELUKAST SODIUM 10 MG TABLET PO SCH (21:21)
[2020-07-25] MEDS: TAMSULOSIN HCL 0.4 MG CAP.SR.24H PO SCH (21:22)
[2020-07-25] MEDS: ATROPINE SULFATE 1% OPHT DROP 2 ML RIGHTEYE SCH (21:28)
[2020-07-26 00:08] VITALS: BP 103/57
[2020-07-26] MEDS: BENZONATATE 100 MG CAPSULE PO PRN (01:54)
[2020-07-26] MEDS: ACETAMINOPHEN 325 MG TABLET PO PRN (02:12)
[2020-07-26 05:05] VITALS: BP 98/53
[2020-07-26] MEDS: PANTOPRAZOLE SODIUM 40 MG TABLET.DR PO SCH (06:11)
[2020-07-26 06:31] LABS: BASOPHILS % (AUTO) 0.2 % (0.0-2.0); EOSINOPHILS # (AUTO) 0.2 K/uL (0.0-0.7); EOSINOPHILS % (AUTO) 2.2 % (0.0-7.0); HEMATOCRIT 31.1 % (36.7-47.1); HEMOGLOBIN 10.5 g/dL (12.5-16.3); LYMPHOCYTES # (AUTO) 1.3 K/uL (20.0-40.0); LYMPHOCYTES % (AUTO) 14.8 % (20.5-51.5); MEAN CORPUSCULAR HEMOGLOBIN 31.8 uug (23.8-33.4); MEAN CORPUSCULAR HGB CONC 34 g/dL (32.5-36.3); MEAN CORPUSCULAR VOLUME 94.2 fL (73.0-96.2); MONOCYTES # (AUTO) 0.6 K/uL (2.0-10.0); MONOCYTES % (AUTO) 6.5 % (0.0-11.0); NEUTROPHILS # (AUTO) 6.9 K/uL (1.8-8.9); NEUTROPHILS % (AUTO) 76.3 % (38.5-71.5); PLATELET COUNT (AUTO) 176 K/uL (152-348); WHITE BLOOD COUNT (AUTO) 9.1 K/uL (3.6-10.2)
--- NOTE | 2020-07-26 06:35 | NUR ---
Patient remains on 3L of oxygen via high flow nasal cannula at 65%FIO2.Saturating at 93%.NSR on tele monitor. Patients uses urinal or bedside commode.Voided well.All needs anticipated and met accordingly.
[2020-07-26 07:06] LABS: MAGNESIUM 1.9 mg/dL (1.8-2.4); PHOSPHOROUS 3.3 mg/dL (2.5-4.9); POTASSIUM 3.9 mmol/L (3.5-5.1)
[2020-07-26 08:00] VITALS: BP 110/84
[2020-07-26] MEDS: ASPIRIN 81 MG TAB.CHEW PO SCH (08:34)
[2020-07-26] MEDS: DOCUSATE SODIUM 100 MG CAPSULE PO SCH ×2 (08:34→16:24)
[2020-07-26] MEDS: CHOLECALCIFEROL 1,000 UNIT TABLET PO SCH (08:34)
[2020-07-26] MEDS: DEXAMETHASONE SOD PHOSPHATE 10 MG INJ IV SCH (08:38)
[2020-07-26] MEDS: FINASTERIDE 5 MG TABLET PO SCH (08:48)
[2020-07-26] MEDS: GLUCERNA SHAKE VANILLA 237 ML CAN PO SCH (08:58)
[2020-07-26] MEDS: FLUTICASONE PROP NASAL SPRAY 16 GM BOTTLE NS SCH (08:59)
[2020-07-26] MEDS: OLOPATADINE 0.1% OPHT DROP 5 ML BOTTLE LEFTEYE SCH ×2 (08:59→20:27)
[2020-07-26] MEDS: METOPROLOL TARTRATE 25 MG TABLET PO SCH ×2 (09:00→16:34)
--- NOTE | 2020-07-26 09:00 | NUR ---
Patient alert and oriented x 4, on High Flow nasal cannula oxygen 30L with 65% Fio2, saturating @ 92-94%, with noted episode of desaturation of 86% when out of bed to use the bedside commode. No complain of any pain or discomfort. Compliant with medications. Patient seen and examined by Dr. Mayen, update given to MD with no order at this time. Will continue to monitor.
[2020-07-26] MEDS: prednisoLONE ACET 1% OPHT DROP 5 ML BOTTLE LEFTEYE SCH ×2 (09:18→20:28)
[2020-07-26] MEDS ORDERED: POTASSIUM CHLORIDE 20 MEQ TAB.PRT.SR PO ONE (10:15)
[2020-07-26] MEDS ORDERED: FUROSEMIDE 40 MG/4 ML VIAL IV ONE (10:15)
--- NOTE | 2020-07-26 13:20 | NUR ---
Received covid PCR test result from Lab c/o [facility] with positive result. Dr. Eben Andrade made aware. Lei made aware to transfer patient to covid unit to room 318. Patient transferred safely to the room with VS WNL, no complain of any pain and discomfort. Remains alert and oriented x 4. On High flow NC 30L with 65% Fio2 saturating @ 93-95%.
[2020-07-26 14:48] VITALS: BP 102/53
--- NOTE | 2020-07-26 16:00 | NUR ---
Received pt mid shift. Pt is alert and oriented x 4, on high flow NC oxygen 30L with 65% Fio2, Satting at 95%. pt desats when ambulating. Blood pressure was 98/57 blood pressure medication was held. No S/S of acute distress. Will continue to monitor, saftey measures in place and call light in reach.
--- NOTE | 2020-07-26 18:41 | NUR ---
EOSR Pt is in bed comfortable. Pt A&O x 4, on high flow NC oxygen 30L with 65% Fio2, satting at 95% and desats with ambulation. No S/S of distress noted, no complaints of pain or discomfort. Needs met through out shift and safety measures in place. Medications given as ordered.Will endorse to oncoming nurse
--- NOTE | 2020-07-26 19:30 | NUR ---
RECEIVED PT AWAKE,ALERT AND ORIENTEDX3. PT IN NO ACUTE DISTRESS. IV INTACT. PT ON HIGH [id number] FIO2 65%. SAFETY AND COMFORT PROVIDED. WILL CONTINUE TO MONITOR.
[2020-07-26 20:12] VITALS: BP 96/51
[2020-07-26] MEDS: TAMSULOSIN HCL 0.4 MG CAP.SR.24H PO SCH (20:20)
[2020-07-26] MEDS: MONTELUKAST SODIUM 10 MG TABLET PO SCH (20:20)
[2020-07-26] MEDS: SENNOSIDES/DOCUSATE SODIUM TABLET PO SCH (20:20)
[2020-07-26] MEDS: ATROPINE SULFATE 1% OPHT DROP 2 ML RIGHTEYE SCH (20:28)
[2020-07-27 00:12] VITALS: BP 108/67
--- NOTE | 2020-07-27 03:15 | NUR ---
PATIENT TAKEN BY BED TO RADIOLOGY AND CTA CHEST DONE ORDERED AND BACK TO BED. Addendum: 07/27/20 at 1544 by PAUL POWER RN ERROR HE WAS TAKEN AT 1315
[2020-07-27 04:15] VITALS: BP 146/76
[2020-07-27] MEDS: BENZONATATE 100 MG CAPSULE PO PRN ×2 (05:51→13:28)
--- NOTE | 2020-07-27 05:55 | NUR ---
PT REFUSED MARCIE KOWALSKI. WASTED ON PYXIS.
[2020-07-27 06:17] LABS: BASOPHILS % (AUTO) 0.2 % (0.0-2.0); EOSINOPHILS # (AUTO) 0.3 K/uL (0.0-0.7); EOSINOPHILS % (AUTO) 3.6 % (0.0-7.0); HEMATOCRIT 31.9 % (36.7-47.1); HEMOGLOBIN 10.6 g/dL (12.5-16.3); LYMPHOCYTES # (AUTO) 1.6 K/uL (20.0-40.0); LYMPHOCYTES % (AUTO) 16.9 % (20.5-51.5); MEAN CORPUSCULAR HEMOGLOBIN 31.4 uug (23.8-33.4); MEAN CORPUSCULAR HGB CONC 33 g/dL (32.5-36.3); MEAN CORPUSCULAR VOLUME 94.1 fL (73.0-96.2); MONOCYTES # (AUTO) 0.6 K/uL (2.0-10.0); MONOCYTES % (AUTO) 6.3 % (0.0-11.0); NEUTROPHILS # (AUTO) 6.9 K/uL (1.8-8.9); PLATELET COUNT (AUTO) 182 K/uL (152-348); RED BLOOD CELL COUNT(AUTO) 3.39 MIL/uL (4.06-5.63); WHITE BLOOD COUNT (AUTO) 9.5 K/uL (3.6-10.2)
[2020-07-27] MEDS: PANTOPRAZOLE SODIUM 40 MG TABLET.DR PO SCH (06:18)
--- NOTE | 2020-07-27 06:22 | NUR ---
PT SLEPT INTERMITTENTLY. PT ON HIGH FLOW OXYGEN. PT IN NO ACUTE DISTRESS. PRESCRIBED MEDICATION GIVEN AND PT TOLERATED IT WELL. PT STATING HE DOESN'T SLEPT WELL BUT DOESN'T WANT ANY PRN MEDICATIONS. PT ON HEART MONITOR. SAFETY AND COMFORT PROVIDED. ALL NEEDS ARE MET. WILL ENDORSE TO INCOMING NURSE FOR CONTINUITY OF CARE.
[2020-07-27 06:44] LABS: MAGNESIUM 1.8 mg/dL (1.8-2.4); PHOSPHOROUS 3.8 mg/dL (2.5-4.9); POTASSIUM 3.8 mmol/L (3.5-5.1)
[2020-07-27] MEDS: DOCUSATE SODIUM 100 MG CAPSULE PO SCH ×2 (08:10→17:00)
[2020-07-27] MEDS: ASPIRIN 81 MG TAB.CHEW PO SCH (08:10)
[2020-07-27] MEDS: CHOLECALCIFEROL 1,000 UNIT TABLET PO SCH (08:10)
[2020-07-27] MEDS: DEXAMETHASONE SOD PHOSPHATE 10 MG INJ IV SCH ×3 (08:12→21:24)
[2020-07-27] MEDS: FINASTERIDE 5 MG TABLET PO SCH (08:13)
[2020-07-27] MEDS: OLOPATADINE 0.1% OPHT DROP 5 ML BOTTLE LEFTEYE SCH ×2 (08:55→20:48)
[2020-07-27] MEDS: prednisoLONE ACET 1% OPHT DROP 5 ML BOTTLE LEFTEYE SCH ×2 (08:55→20:48)
[2020-07-27] MEDS: FLUTICASONE PROP NASAL SPRAY 16 GM BOTTLE NS SCH (08:56)
[2020-07-27] MEDS: GLUCERNA SHAKE VANILLA 237 ML CAN PO SCH (08:56)
[2020-07-27] MEDS: METOPROLOL TARTRATE 25 MG TABLET PO SCH ×2 (09:00→17:00)
--- NOTE | 2020-07-27 10:13 | NUR ---
DR STONER HERE TO SEE PATIENT WITH NEW ORDERS PATIENT WILL GET CT ANGIO TODAY.
[2020-07-27] MEDS ORDERED: IOHEXOL 350 100 ML INFUS..BTL ONE (10:33)
[2020-07-27] MEDS ORDERED: SWABABLE VALVE TRANSFER SET EA MC ONE (10:33)
[2020-07-27] MEDS ORDERED: IV NORMAL SALINE 250 ML IV ONE (10:33)
[2020-07-27] MEDS: ENOXAPARIN SODIUM 40 MG/0.4 ML DISP.SYRIN SQ SCH (10:45)
--- NOTE | 2020-07-27 10:51 | NUR ---
CONSENT FOR CT CHEST OBTAINED FROM THE PATIENT AND BECAUSE HE ATE BREAKFAST THIS TEST WILL BE DONE AT ABOUT 1230 IN COORDINATION WITH THE RESPIRATORY SINCE PATIENT IS ON HI FLOW O2 AND WILL REQUIRE RESPIRATORY INVOLVEMENT.PATIENT INSTRUCTED THAT HE CANNOT EAT OR DRINK UNTIL AFTER THE CTA COMPLETED AND HE EXPRESSED UNDERSTANDING.
[2020-07-27 11:53] LABS: BILIRUBIN,DIRECT 0.2 mg/dL (0.0-0.2); BILIRUBIN,TOTAL 0.8 mg/dL (0.2-1.0); TOTAL PROTEIN, SERUM 6.2 g/dL (6.4-8.2)
[2020-07-27 11:56] VITALS: BP 102/54
--- NOTE | 2020-07-27 13:30 | NUR ---
PER THE RESPIRATORY HE TITRATED THE FIO2 TO 60 PERCENT AND PATIENT IS TOLERATING WITH SATS AT 93 PERCENT.
[2020-07-27] MEDS ORDERED: ACETAMINOPHEN 650 MG/20.3 ML LIQUID UDC NG ONE (15:30)
[2020-07-27] MEDS ORDERED: diphenhydrAMINE 50 MG/1 ML VIAL IV ONE (15:30)
--- NOTE | 2020-07-27 15:30 | NUR ---
NOTED LAB ORDERS FOR QUANTIFERON TB GOLD ON THIS PATIENT CALLED DR RODRIGUEZ TO INQUIRE IF PATIENT WILL NEED A NEGATIVE PRESSURE ROOM AND IF SO PATIENT HAS TO BE TRANSFERED OUT STATED FOR ME TO CALL AND ASK YELITZA INFECTIOUS DISEASE CORE DRILLER HELPER.SI I REACHED OUT TO YELITZA AND SHE STATED THAT IT WAS NOT NECESSARY THAT THIS TEST IS CONSISTENT WITH THE COVID AND ACTEMRA ADMINISTRATION
[2020-07-27] MEDS ORDERED: TOCILIZUMAB 400 MG in IV NORMAL SALINE 80 ML IV ONE (16:00)
--- NOTE | 2020-07-27 16:10 | NUR ---
JESE ADMINISTERED IVPB ORDERED WITH NO ADVERSE EFFECT NOTED AT THIS TIME.
[2020-07-27 16:15] VITALS: BP 105/60
--- NOTE | 2020-07-27 18:00 | NUR ---
ALET REMAINS ON HI [place] O2 AT 60 PERCENT FIO2 WITH NO SHORTNESS OF BREATH GETS EASILY WORKED UP AND AGITATED BUT IS EASILY REDIRECTABLE WILL CONTINUE TO OBSERVE.
[2020-07-27 20:16] VITALS: BP 107/44
[2020-07-27] MEDS: MONTELUKAST SODIUM 10 MG TABLET PO SCH (20:47)
[2020-07-27] MEDS: SENNOSIDES/DOCUSATE SODIUM TABLET PO SCH (20:47)
[2020-07-27] MEDS: TAMSULOSIN HCL 0.4 MG CAP.SR.24H PO SCH (20:48)
[2020-07-27] MEDS: ATROPINE SULFATE 1% OPHT DROP 2 ML RIGHTEYE SCH (20:49)
[2020-07-28 00:16] VITALS: BP 134/58
[2020-07-28 04:16] VITALS: BP 120/65
[2020-07-28] MEDS: DEXAMETHASONE SOD PHOSPHATE 10 MG INJ IV SCH ×3 (06:05→21:04)
[2020-07-28] MEDS: PANTOPRAZOLE SODIUM 40 MG TABLET.DR PO SCH (06:05)
--- NOTE | 2020-07-28 06:42 | NUR ---
Pt stable throughout the shift. RT titrated Oxygen to 30L, 55% FiO2, tolerating well. Denies SOB/CP. Comfort care and needs attended. NSR on tele monitor. Isolation precaution maintained. Safety measures in place. Will endorse to oncoming nurse.
[2020-07-28 07:28] LABS: BASOPHILS % (AUTO) 0.1 % (0.0-2.0); HEMATOCRIT 32.1 % (36.7-47.1); HEMOGLOBIN 10.7 g/dL (12.5-16.3); LYMPHOCYTES # (AUTO) 0.7 K/uL (20.0-40.0); LYMPHOCYTES % (AUTO) 9.1 % (20.5-51.5); MEAN CORPUSCULAR HEMOGLOBIN 31.4 uug (23.8-33.4); MEAN CORPUSCULAR HGB CONC 34 g/dL (32.5-36.3); MEAN CORPUSCULAR VOLUME 93.7 fL (73.0-96.2); MONOCYTES # (AUTO) 0.3 K/uL (2.0-10.0); MONOCYTES % (AUTO) 4.2 % (0.0-11.0); NEUTROPHILS # (AUTO) 6.9 K/uL (1.8-8.9); NEUTROPHILS % (AUTO) 86.6 % (38.5-71.5); PLATELET COUNT (AUTO) 231 K/uL (152-348); RED BLOOD CELL COUNT(AUTO) 3.42 MIL/uL (4.06-5.63)
--- NOTE | 2020-07-28 07:30 | NUR ---
Received patient in bed awake alert and oriented times 4. No sign of distress noted. Patient is on 30L high flow FIO2 55%. Safety precautions are in place. Will continue to monitor.
[2020-07-28 08:20] LABS: CREATININE 0.9 mg/dL (0.6-1.3); MAGNESIUM 1.9 mg/dL (1.8-2.4); PHOSPHOROUS 4.6 mg/dL (2.5-4.9); POTASSIUM 4.4 mmol/L (3.5-5.1)
[2020-07-28] MEDS: DOCUSATE SODIUM 100 MG CAPSULE PO SCH ×2 (09:48→16:51)
[2020-07-28] MEDS: FINASTERIDE 5 MG TABLET PO SCH (09:48)
[2020-07-28] MEDS: ASPIRIN 81 MG TAB.CHEW PO SCH (09:48)
[2020-07-28] MEDS: CHOLECALCIFEROL 1,000 UNIT TABLET PO SCH (09:48)
[2020-07-28] MEDS: OLOPATADINE 0.1% OPHT DROP 5 ML BOTTLE LEFTEYE SCH ×2 (09:49→20:56)
[2020-07-28] MEDS: prednisoLONE ACET 1% OPHT DROP 5 ML BOTTLE LEFTEYE SCH ×2 (09:49→20:56)
[2020-07-28] MEDS: GLUCERNA SHAKE VANILLA 237 ML CAN PO SCH (09:50)
[2020-07-28] MEDS: FLUTICASONE PROP NASAL SPRAY 16 GM BOTTLE NS SCH (09:50)
[2020-07-28] MEDS: METOPROLOL TARTRATE 25 MG TABLET PO SCH ×2 (09:53→16:52)
[2020-07-28] MEDS: ENOXAPARIN SODIUM 40 MG/0.4 ML DISP.SYRIN SQ SCH (09:53)
[2020-07-28 12:00] VITALS: BP 103/55
[2020-07-28 16:13] VITALS: BP 112/58
--- NOTE | 2020-07-28 18:23 | NUR ---
Patient left resting in bed and stable throughout the shift. Oxygen remains at 30L, 55% FiO2, tolerating well. Denies SOB/chest pain. Comfort care and needs attended. Isolation precaution maintained. Safety measures in place. Will endorse to oncoming nurse.
[2020-07-28 20:16] VITALS: BP 109/48
[2020-07-28] MEDS: TAMSULOSIN HCL 0.4 MG CAP.SR.24H PO SCH (20:56)
[2020-07-28] MEDS: SENNOSIDES/DOCUSATE SODIUM TABLET PO SCH (20:56)
[2020-07-28] MEDS: ATROPINE SULFATE 1% OPHT DROP 2 ML RIGHTEYE SCH (20:56)
[2020-07-28] MEDS: MONTELUKAST SODIUM 10 MG TABLET PO SCH (20:56)
[2020-07-29 00:12] VITALS: BP 119/59
[2020-07-29 04:20] VITALS: BP 107/52
[2020-07-29] MEDS: DEXAMETHASONE SOD PHOSPHATE 10 MG INJ IV SCH ×3 (05:59→21:48)
[2020-07-29] MEDS: PANTOPRAZOLE SODIUM 40 MG TABLET.DR PO SCH (06:00)
[2020-07-29 06:20] LABS: BASOPHILS % (AUTO) 0.1 % (0.0-2.0); HEMATOCRIT 31.1 % (36.7-47.1); HEMOGLOBIN 10.4 g/dL (12.5-16.3); LYMPHOCYTES # (AUTO) 0.7 K/uL (20.0-40.0); LYMPHOCYTES % (AUTO) 9.8 % (20.5-51.5); MEAN CORPUSCULAR HEMOGLOBIN 31.3 uug (23.8-33.4); MEAN CORPUSCULAR HGB CONC 33 g/dL (32.5-36.3); MEAN CORPUSCULAR VOLUME 94.1 fL (73.0-96.2); MONOCYTES # (AUTO) 0.5 K/uL (2.0-10.0); MONOCYTES % (AUTO) 7.1 % (0.0-11.0); NEUTROPHILS # (AUTO) 6.3 K/uL (1.8-8.9); PLATELET COUNT (AUTO) 238 K/uL (152-348); RED BLOOD CELL COUNT(AUTO) 3.31 MIL/uL (4.06-5.63); WHITE BLOOD COUNT (AUTO) 7.6 K/uL (3.6-10.2)
--- NOTE | 2020-07-29 06:41 | NUR ---
Patient resting in bed and stable throughout the shift. No s/s of acute distress noted at this time. Pt remain on High flow O2 30L, 55% FiO2, tolerating well. Denies SOB/chest pain. All needs were met and attended to. Isolation precaution maintained. Safety measures in place. Will endorse to oncoming nurse
[2020-07-29 06:50] LABS: MAGNESIUM 1.9 mg/dL (1.8-2.4); PHOSPHOROUS 4.8 mg/dL (2.5-4.9); POTASSIUM 4.4 mmol/L (3.5-5.1)
[2020-07-29] MEDS: FINASTERIDE 5 MG TABLET PO SCH (08:47)
[2020-07-29] MEDS: CHOLECALCIFEROL 1,000 UNIT TABLET PO SCH (08:47)
[2020-07-29] MEDS: ASPIRIN 81 MG TAB.CHEW PO SCH (08:47)
[2020-07-29] MEDS: ENOXAPARIN SODIUM 40 MG/0.4 ML DISP.SYRIN SQ SCH (08:49)
[2020-07-29] MEDS: METOPROLOL TARTRATE 25 MG TABLET PO SCH ×2 (08:50→17:00)
[2020-07-29] MEDS: GLUCERNA SHAKE VANILLA 237 ML CAN PO SCH (08:50)
[2020-07-29] MEDS: OLOPATADINE 0.1% OPHT DROP 5 ML BOTTLE LEFTEYE SCH ×2 (08:51→20:25)
[2020-07-29] MEDS: prednisoLONE ACET 1% OPHT DROP 5 ML BOTTLE LEFTEYE SCH ×2 (08:51→20:26)
[2020-07-29] MEDS: FLUTICASONE PROP NASAL SPRAY 16 GM BOTTLE NS SCH (08:51)
[2020-07-29] MEDS: DOCUSATE SODIUM 100 MG CAPSULE PO SCH ×2 (09:00→17:04)
[2020-07-29 12:00] VITALS: BP 138/58
[2020-07-29 16:12] VITALS: BP 112/79
--- NOTE | 2020-07-29 19:30 | NUR ---
Received patient lying in bed. AAOX4. In no acute distress. Denies any pain or SOB. On High flow O2 at 30L with 55% FiO2. O2 sat at 93%. NSR on tele at 72/min. IV site on right FA intact and patent. COVID precaution initiated. Safety measure initiated and call angel within reached. Continue to monitor.
[2020-07-29 20:15] VITALS: BP 119/66
[2020-07-29] MEDS: MONTELUKAST SODIUM 10 MG TABLET PO SCH (20:18)
[2020-07-29] MEDS: TAMSULOSIN HCL 0.4 MG CAP.SR.24H PO SCH (20:18)
[2020-07-29] MEDS: SENNOSIDES/DOCUSATE SODIUM TABLET PO SCH (20:18)
[2020-07-29] MEDS: ATROPINE SULFATE 1% OPHT DROP 2 ML RIGHTEYE SCH (20:26)
[2020-07-30 00:09] VITALS: BP 127/71
[2020-07-30 04:15] VITALS: BP 120/61
[2020-07-30] MEDS: DEXAMETHASONE SOD PHOSPHATE 10 MG INJ IV SCH ×3 (05:48→21:00)
[2020-07-30] MEDS: PANTOPRAZOLE SODIUM 40 MG TABLET.DR PO SCH (06:01)
--- NOTE | 2020-07-30 06:22 | NUR ---
Remains AOx4. In no acute distress. Denies any pain or SOB. High flow O2 at 30L with 55% FiO2. O2 sat at 96%. NSR on tele at 70/min. COVID precaution maintained. Needs attended to and met. Safety measure maintained and call angel within reached.
[2020-07-30 07:16] LABS: BASOPHILS % (AUTO) 0.1 % (0.0-2.0); EOSINOPHILS % (AUTO) 0.1 % (0.0-7.0); HEMATOCRIT 32.1 % (36.7-47.1); HEMOGLOBIN 10.9 g/dL (12.5-16.3); LYMPHOCYTES # (AUTO) 1.2 K/uL (20.0-40.0); MEAN CORPUSCULAR HEMOGLOBIN 31.5 uug (23.8-33.4); MEAN CORPUSCULAR HGB CONC 34 g/dL (32.5-36.3); MONOCYTES # (AUTO) 0.8 K/uL (2.0-10.0); MONOCYTES % (AUTO) 11.4 % (0.0-11.0); NEUTROPHILS # (AUTO) 4.8 K/uL (1.8-8.9); NEUTROPHILS % (AUTO) 70.4 % (38.5-71.5); PLATELET COUNT (AUTO) 277 K/uL (152-348); RED BLOOD CELL COUNT(AUTO) 3.45 MIL/uL (4.06-5.63); WHITE BLOOD COUNT (AUTO) 6.8 K/uL (3.6-10.2)
[2020-07-30 07:56] LABS: MAGNESIUM 1.9 mg/dL (1.8-2.4); PHOSPHOROUS 4.3 mg/dL (2.5-4.9); POTASSIUM 4.2 mmol/L (3.5-5.1)
[2020-07-30] MEDS: ASPIRIN 81 MG TAB.CHEW PO SCH (09:16)
[2020-07-30] MEDS: CHOLECALCIFEROL 1,000 UNIT TABLET PO SCH (09:16)
[2020-07-30] MEDS: DOCUSATE SODIUM 100 MG CAPSULE PO SCH ×2 (09:17→16:41)
[2020-07-30] MEDS: FINASTERIDE 5 MG TABLET PO SCH (09:17)
[2020-07-30] MEDS: METOPROLOL TARTRATE 25 MG TABLET PO SCH ×2 (09:17→16:41)
[2020-07-30] MEDS: ENOXAPARIN SODIUM 40 MG/0.4 ML DISP.SYRIN SQ SCH (09:38)
[2020-07-30] MEDS: OLOPATADINE 0.1% OPHT DROP 5 ML BOTTLE LEFTEYE SCH ×2 (09:40→21:01)
[2020-07-30] MEDS: FLUTICASONE PROP NASAL SPRAY 16 GM BOTTLE NS SCH (09:40)
[2020-07-30] MEDS: prednisoLONE ACET 1% OPHT DROP 5 ML BOTTLE LEFTEYE SCH ×2 (09:40→21:02)
[2020-07-30] MEDS: GLUCERNA SHAKE VANILLA 237 ML CAN PO SCH (09:53)
[2020-07-30 12:00] VITALS: BP 118/61
[2020-07-30 16:13] VITALS: BP 100/57
--- NOTE | 2020-07-30 19:00 | NUR ---
no significant changes during shift. patient on highflow at 30L FI02 55%. Medications given as ordered. Comfort measures given. Will give report to incoming shift for continuation of care.
[2020-07-30 20:21] VITALS: BP 124/64
[2020-07-30] MEDS: SENNOSIDES/DOCUSATE SODIUM TABLET PO SCH (21:00)
[2020-07-30] MEDS: MONTELUKAST SODIUM 10 MG TABLET PO SCH (21:01)
[2020-07-30] MEDS: TAMSULOSIN HCL 0.4 MG CAP.SR.24H PO SCH (21:01)
[2020-07-30] MEDS: ATROPINE SULFATE 1% OPHT DROP 2 ML RIGHTEYE SCH (21:02)
[2020-07-30] MEDS ORDERED: FLUCONAZOLE 200 MG/100 ML PIGGYBACK ONE (22:24)
[2020-07-30] MEDS: FLUCONAZOLE 200 MG TABLET PO SCH (22:31)
[2020-07-30] MEDS ORDERED: FLUCONAZOLE 100 MG TABLET ONE (22:33)
[2020-07-31 00:44] VITALS: BP 124/65
[2020-07-31 05:14] VITALS: BP 121/70
[2020-07-31] MEDS: DEXAMETHASONE SOD PHOSPHATE 10 MG INJ IV SCH ×3 (06:21→21:12)
[2020-07-31] MEDS: PANTOPRAZOLE SODIUM 40 MG TABLET.DR PO SCH (06:21)
--- NOTE | 2020-07-31 06:44 | NUR ---
Pt stable throughout the shift. On high flow 30L, 50% Fio2. Denies SOB/CP. NSR, 60 ON T Addendum: 07/31/20 at 0647 by MALLY LEE RN NSR 60 on tele monitor. Comfort care and needs attended. Isolation precaution maintained. Safety measures in place. Will endorse to oncoming nurse.
--- NOTE | 2020-07-31 07:50 | NUR ---
Patient received in bed alert and oriented. On high flow 30L, 50%fio2 tolerated spo2 98%. Breathing even and non labored. No respiratory distress. Denies chest pain or sob. RFA Iv site intact and patent. No bleeding noted. Safety measures in place. Kept comfortable. Call light within reach. Will continue to monitor.
[2020-07-31 08:06] LABS: CRYPTOCOCCUS AB, SERUM Negative (Negative)
[2020-07-31 08:30] VITALS: BP 118/58
[2020-07-31] MEDS: CHOLECALCIFEROL 1,000 UNIT TABLET PO SCH (08:41)
[2020-07-31] MEDS: ASPIRIN 81 MG TAB.CHEW PO SCH (08:41)
[2020-07-31] MEDS: METOPROLOL TARTRATE 25 MG TABLET PO SCH ×2 (08:47→17:14)
[2020-07-31] MEDS: FINASTERIDE 5 MG TABLET PO SCH (08:47)
[2020-07-31] MEDS: DOCUSATE SODIUM 100 MG CAPSULE PO SCH ×2 (08:47→17:14)
[2020-07-31] MEDS: FLUTICASONE PROP NASAL SPRAY 16 GM BOTTLE NS SCH (08:57)
[2020-07-31] MEDS: prednisoLONE ACET 1% OPHT DROP 5 ML BOTTLE LEFTEYE SCH ×2 (08:59→21:24)
[2020-07-31] MEDS: OLOPATADINE 0.1% OPHT DROP 5 ML BOTTLE LEFTEYE SCH ×2 (09:00→21:23)
[2020-07-31] MEDS: GLUCERNA SHAKE VANILLA 237 ML CAN PO SCH (09:10)
[2020-07-31] MEDS: ENOXAPARIN SODIUM 40 MG/0.4 ML DISP.SYRIN SQ SCH (09:10)
[2020-07-31] MEDS: FLUCONAZOLE 200 MG TABLET PO SCH (09:18)
[2020-07-31 11:57] VITALS: BP 117/64
[2020-07-31 16:04] VITALS: BP 116/66
--- NOTE | 2020-07-31 19:45 | NUR ---
PATIENT ALERT ORIENTED, NO SOB NO CHEST PAIN. PATIENT ON DROPLET PRECAUTION, PATIENT HAS NO COMPLAIN OF PAIN, ASSISTED TO COMMODE FOR TOILETING NEEDS, USES URINAL FOR BLADDER ELIMINATION, CALL LIGHT WITHIN REACH. CONT TO MONITOR.
[2020-07-31 20:30] VITALS: BP 115/64
[2020-07-31] MEDS: SENNOSIDES/DOCUSATE SODIUM TABLET PO SCH (21:12)
[2020-07-31] MEDS: TAMSULOSIN HCL 0.4 MG CAP.SR.24H PO SCH (21:12)
[2020-07-31] MEDS: MONTELUKAST SODIUM 10 MG TABLET PO SCH (21:12)
[2020-07-31] MEDS: ATROPINE SULFATE 1% OPHT DROP 2 ML RIGHTEYE SCH (21:24)
[2020-08-01 00:41] VITALS: BP 128/69
[2020-08-01 05:57] VITALS: BP 127/65
[2020-08-01] MEDS: PANTOPRAZOLE SODIUM 40 MG TABLET.DR PO SCH (06:12)
[2020-08-01] MEDS: DEXAMETHASONE SOD PHOSPHATE 10 MG INJ IV SCH ×3 (06:12→21:37)
--- NOTE | 2020-08-01 06:13 | NUR ---
medication decadron enter manually, medication bar code unscannable..
--- NOTE | 2020-08-01 06:32 | NUR ---
PATIENT ALERT ORIENTED, NO SOB NO CHEST PAIN, REMAINS ON DROPLET PRECAUTION, PATIENT ON HIGH FLOW OXYGEN NO DESATURATION NOTED, ASSISTED WITH TOILETING, CONT TO MONITOR.
--- NOTE | 2020-08-01 07:30 | NUR ---
RECEIVED REPORT ON PT, AWAKE ALERT AND ORIENTED X4, PT ON HIGH FLOW O2 40L/MIN SATURATING AT 98%, NO SIGNS OF DISTRESS NOTED. PT IS SINUS RHYTHM OF TELE MONITOR, URINAL AT BEDSIDE, COMMODE AT BEDSIDE. ABLE TO AMBULATE WITH ASSISTANCE, NO REPORTS OF PAIN NOTED. IV ACCESS ON THE RIGHT FA 20G SALINE LOCK. BED IN LOW AND LOCKED POSITION, ISOLATION PRECAUTIONS IN PLACE, CALL LIGHT WITHIN REACH, WILL CONTINUE TO MONITOR.
[2020-08-01 08:00] VITALS: BP 138/69
[2020-08-01] MEDS: FLUCONAZOLE 200 MG TABLET PO SCH (08:36)
[2020-08-01] MEDS: FINASTERIDE 5 MG TABLET PO SCH (08:36)
[2020-08-01] MEDS: CHOLECALCIFEROL 1,000 UNIT TABLET PO SCH (08:36)
[2020-08-01] MEDS: DOCUSATE SODIUM 100 MG CAPSULE PO SCH ×2 (08:49→17:14)
[2020-08-01] MEDS: ASPIRIN 81 MG TAB.CHEW PO SCH (08:49)
[2020-08-01] MEDS: METOPROLOL TARTRATE 25 MG TABLET PO SCH ×2 (08:49→17:15)
[2020-08-01] MEDS: ENOXAPARIN SODIUM 40 MG/0.4 ML DISP.SYRIN SQ SCH (08:50)
[2020-08-01] MEDS: GLUCERNA SHAKE VANILLA 237 ML CAN PO SCH (09:01)
[2020-08-01] MEDS: prednisoLONE ACET 1% OPHT DROP 5 ML BOTTLE LEFTEYE SCH ×2 (09:02→21:01)
[2020-08-01] MEDS: OLOPATADINE 0.1% OPHT DROP 5 ML BOTTLE LEFTEYE SCH ×2 (09:02→21:01)
[2020-08-01] MEDS: FLUTICASONE PROP NASAL SPRAY 16 GM BOTTLE NS SCH (09:25)
[2020-08-01 11:16] VITALS: BP 122/62
[2020-08-01 15:32] VITALS: BP 108/62
--- NOTE | 2020-08-01 18:56 | NUR ---
PT RESTING IN BED, AWAKE ALERT AND ORIENTED X4, ON TELE MONITOR NSR, PT ON HIGH FLOW O2 40L SATURATING AT 98%, NO SIGNS OF DISTRESS NOTED, NO REPORTS OF PAIN. PT ABLE TO WALK TO COMMODE WITH ASSIST, URINAL AT BEDSIDE. IV ACCESS ON THE RIGHT FA 20G SL. MEDIATIONS GIVEN ORDERED. BED IN LOW AND LOCKED POSITION, CALL LIGHT WITHIN REACH, SAFETY AND ISOLATION PRECAUTIONS IN PLACE, WILL ENDORSE TO ONCOMING NURSE.
--- NOTE | 2020-08-01 19:30 | NUR ---
RECEIVED PT AWAKE, ALERT AND RESPONSIVE TO VERBAL STIMULI. NO SOB AND NO CHEST PAIN. PATIENT TELE MONITOR SINUS RHYTHM. PATIENT ON HIGH FLOW 40L OXYGEN SAT 98%. PATIENT HAS NO COMPLAIN OF PAIN AT THIS TIME. WILL CONTINUE TO MONITOR.
[2020-08-01 20:15] VITALS: BP 109/53
[2020-08-01] MEDS: TAMSULOSIN HCL 0.4 MG CAP.SR.24H PO SCH (20:35)
[2020-08-01] MEDS: SENNOSIDES/DOCUSATE SODIUM TABLET PO SCH (20:35)
[2020-08-01] MEDS: ACETAMINOPHEN 325 MG TABLET PO PRN (20:35)
[2020-08-01] MEDS: MONTELUKAST SODIUM 10 MG TABLET PO SCH (20:35)
[2020-08-01] MEDS: ATROPINE SULFATE 1% OPHT DROP 2 ML RIGHTEYE SCH (21:01)
[2020-08-02 00:54] VITALS: BP 123/70
[2020-08-02 06:00] VITALS: BP 120/66
[2020-08-02] MEDS: DEXAMETHASONE SOD PHOSPHATE 10 MG INJ IV SCH ×2 (06:03→20:32)
[2020-08-02] MEDS: PANTOPRAZOLE SODIUM 40 MG TABLET.DR PO SCH (06:03)
--- NOTE | 2020-08-02 06:24 | NUR ---
PT IN NO ACUTE DISTRESS. PT IV INTACT. DRESSING CHANGED. PRESCrIBED MEDICATiON GIVEN AND PT TOLERATED IT WELL. PT ON Sinus Rhythym and sometimes Sinus Bradycardia . PT VITAL SIGNS WNL. PT ON HIGH FLOW OXYGEN. SAFETY AND COMFORT PROVIDED. ALL NEEDS ARE MET. WILL ENDORSE TO INCOMING NURSE FOR CONTINUITY OF CARE.
[2020-08-02 06:56] LABS: HEMATOCRIT 34.2 % (36.7-47.1); HEMOGLOBIN 11.8 g/dL (12.5-16.3); LYMPHOCYTES # (AUTO) 1.2 K/uL (20.0-40.0); LYMPHOCYTES % (AUTO) 12.2 % (20.5-51.5); MEAN CORPUSCULAR HGB CONC 35 g/dL (32.5-36.3); MEAN CORPUSCULAR VOLUME 92.7 fL (73.0-96.2); MONOCYTES # (AUTO) 0.5 K/uL (2.0-10.0); MONOCYTES % (AUTO) 5.1 % (0.0-11.0); NEUTROPHILS # (AUTO) 8.4 K/uL (1.8-8.9); NEUTROPHILS % (AUTO) 82.7 % (38.5-71.5); PLATELET COUNT (AUTO) 354 K/uL (152-348); RED BLOOD CELL COUNT(AUTO) 3.69 MIL/uL (4.06-5.63); WHITE BLOOD COUNT (AUTO) 10.2 K/uL (3.6-10.2)
[2020-08-02 07:12] LABS: CREATININE 1.2 mg/dL (0.6-1.3); MAGNESIUM 2.1 mg/dL (1.8-2.4); PHOSPHOROUS 3.6 mg/dL (2.5-4.9); POTASSIUM 4.5 mmol/L (3.5-5.1)
[2020-08-02] MEDS: FLUCONAZOLE 200 MG TABLET PO SCH (08:46)
[2020-08-02] MEDS: DOCUSATE SODIUM 100 MG CAPSULE PO SCH ×2 (08:46→16:54)
[2020-08-02] MEDS: FINASTERIDE 5 MG TABLET PO SCH (08:46)
[2020-08-02] MEDS: CHOLECALCIFEROL 1,000 UNIT TABLET PO SCH (08:46)
[2020-08-02] MEDS: ASPIRIN 81 MG TAB.CHEW PO SCH (08:46)
[2020-08-02] MEDS: ENOXAPARIN SODIUM 40 MG/0.4 ML DISP.SYRIN SQ SCH (08:47)
[2020-08-02] MEDS: GLUCERNA SHAKE VANILLA 237 ML CAN PO SCH (08:49)
[2020-08-02] MEDS: OLOPATADINE 0.1% OPHT DROP 5 ML BOTTLE LEFTEYE SCH ×2 (08:50→20:30)
[2020-08-02] MEDS: prednisoLONE ACET 1% OPHT DROP 5 ML BOTTLE LEFTEYE SCH ×2 (08:50→20:30)
[2020-08-02] MEDS: FLUTICASONE PROP NASAL SPRAY 16 GM BOTTLE NS SCH (08:50)
[2020-08-02] MEDS: METOPROLOL TARTRATE 25 MG TABLET PO SCH ×2 (08:56→16:58)
--- NOTE | 2020-08-02 11:28 | NUR ---
Per respiratory therapist, high flow oxygen titrated to 25L @30% Fio2, saturation @ 96-97%. Denies of any pain at this time will continue to monitor.
[2020-08-02 11:33] VITALS: BP 115/60
[2020-08-02 16:00] VITALS: BP 122/57
--- NOTE | 2020-08-02 18:18 | NUR ---
VS stable no s/sx of distress. Denies of any pain. All medications given as ordered. All needs met. Call light placed within reach. Safety precaution in place.
--- NOTE | 2020-08-02 19:30 | NUR ---
Received patient lying in bed. AAOX4. In no acute distress. Denies any pain or SOB. On High flow O2 at 25L with 30% FiO2. O2 sat at 94%. NSR on tele at 74/min. IV site on right FA intact and patent. COVID precaution initiated. Needs attended to and met. Safety measure initiated and call angel within reached. Continue to monitor.
[2020-08-02 20:09] VITALS: BP 107/54
[2020-08-02] MEDS: ATROPINE SULFATE 1% OPHT DROP 2 ML RIGHTEYE SCH (20:30)
[2020-08-02] MEDS: MONTELUKAST SODIUM 10 MG TABLET PO SCH (20:31)
[2020-08-02] MEDS: SENNOSIDES/DOCUSATE SODIUM TABLET PO SCH (20:31)
[2020-08-02] MEDS: TAMSULOSIN HCL 0.4 MG CAP.SR.24H PO SCH (20:31)
[2020-08-03 00:03] VITALS: BP 123/64
[2020-08-03 04:00] VITALS: BP 118/61
--- NOTE | 2020-08-03 06:08 | NUR ---
Slept well last night. In no acute distress. No c/o of pain or SOB. On High flow O2 at 25L with 30% FiO2. O2 sat at 95%. NSR on tele at 65/min. COVID precaution maintained. Needs attended to and met. Safety measure maintained and call angel within reached.
[2020-08-03 06:10] LABS: BASOPHILS % (AUTO) 0.1 % (0.0-2.0); HEMATOCRIT 35.8 % (36.7-47.1); HEMOGLOBIN 12.1 g/dL (12.5-16.3); LYMPHOCYTES # (AUTO) 1.3 K/uL (20.0-40.0); LYMPHOCYTES % (AUTO) 11.4 % (20.5-51.5); MEAN CORPUSCULAR HEMOGLOBIN 31.5 uug (23.8-33.4); MEAN CORPUSCULAR HGB CONC 34 g/dL (32.5-36.3); MEAN CORPUSCULAR VOLUME 93.3 fL (73.0-96.2); MONOCYTES # (AUTO) 0.9 K/uL (2.0-10.0); MONOCYTES % (AUTO) 7.7 % (0.0-11.0); NEUTROPHILS % (AUTO) 80.8 % (38.5-71.5); PLATELET COUNT (AUTO) 353 K/uL (152-348); RED BLOOD CELL COUNT(AUTO) 3.84 MIL/uL (4.06-5.63); WHITE BLOOD COUNT (AUTO) 11.1 K/uL (3.6-10.2)
[2020-08-03] MEDS: PANTOPRAZOLE SODIUM 40 MG TABLET.DR PO SCH (06:12)
[2020-08-03 06:27] LABS: CREATININE 1.2 mg/dL (0.6-1.3); PHOSPHOROUS 3.4 mg/dL (2.5-4.9); POTASSIUM 4.5 mmol/L (3.5-5.1)
--- NOTE | 2020-08-03 08:00 | NUR ---
Pt states he feels better" Pt on high flow 25 liter with 35% FIO2 with saturation of 97%. PT alert and oriented x 4. Denies any c/o pain. PT denies any c/o pain. Call light is within reach.
[2020-08-03] MEDS: FINASTERIDE 5 MG TABLET PO SCH (08:36)
[2020-08-03] MEDS: CHOLECALCIFEROL 1,000 UNIT TABLET PO SCH (08:36)
[2020-08-03] MEDS: DOCUSATE SODIUM 100 MG CAPSULE PO SCH ×2 (08:36→16:25)
[2020-08-03] MEDS: ASPIRIN 81 MG TAB.CHEW PO SCH (08:37)
[2020-08-03] MEDS: FLUCONAZOLE 200 MG TABLET PO SCH (08:53)
[2020-08-03] MEDS: METOPROLOL TARTRATE 25 MG TABLET PO SCH ×2 (08:53→16:25)
[2020-08-03] MEDS: DEXAMETHASONE SOD PHOSPHATE 10 MG INJ IV SCH ×2 (08:54→21:20)
[2020-08-03] MEDS: GLUCERNA SHAKE VANILLA 237 ML CAN PO SCH (08:54)
[2020-08-03] MEDS: OLOPATADINE 0.1% OPHT DROP 5 ML BOTTLE LEFTEYE SCH ×2 (08:55→21:20)
[2020-08-03] MEDS: FLUTICASONE PROP NASAL SPRAY 16 GM BOTTLE NS SCH (08:56)
[2020-08-03] MEDS: prednisoLONE ACET 1% OPHT DROP 5 ML BOTTLE LEFTEYE SCH ×2 (08:56→21:20)
[2020-08-03] MEDS: ENOXAPARIN SODIUM 40 MG/0.4 ML DISP.SYRIN SQ SCH (09:04)
--- NOTE | 2020-08-03 10:00 | NUR ---
Dr browne saw pt. no new orders received.
[2020-08-03 11:30] VITALS: BP 155/65
[2020-08-03 16:00] VITALS: BP 125/59
[2020-08-03 20:54] VITALS: BP 120/67
[2020-08-03] MEDS: SENNOSIDES/DOCUSATE SODIUM TABLET PO SCH (21:20)
[2020-08-03] MEDS: ATROPINE SULFATE 1% OPHT DROP 2 ML RIGHTEYE SCH (21:20)
[2020-08-03] MEDS: MONTELUKAST SODIUM 10 MG TABLET PO SCH (21:20)
[2020-08-03] MEDS: TAMSULOSIN HCL 0.4 MG CAP.SR.24H PO SCH (21:20)
[2020-08-04 00:47] VITALS: BP 128/76
[2020-08-04 04:57] VITALS: BP 121/61
--- NOTE | 2020-08-04 05:37 | NUR ---
Pt slept throughout the night with no complaints. Denies pain or SOB. On 25L sating at 98%. SR on monitor. Bed is locked and in lowest position. Iv site is intact and patent. No other issues or concerns at this time. Will endorse to day shift.
[2020-08-04] MEDS: PANTOPRAZOLE SODIUM 40 MG TABLET.DR PO SCH (06:26)
[2020-08-04 07:17] LABS: HEMATOCRIT 38.1 % (36.7-47.1); HEMOGLOBIN 12.7 g/dL (12.5-16.3); LYMPHOCYTES # (AUTO) 1.4 K/uL (20.0-40.0); MEAN CORPUSCULAR HEMOGLOBIN 31.2 uug (23.8-33.4); MEAN CORPUSCULAR HGB CONC 33 g/dL (32.5-36.3); MEAN CORPUSCULAR VOLUME 93.7 fL (73.0-96.2); MONOCYTES # (AUTO) 0.8 K/uL (2.0-10.0); MONOCYTES % (AUTO) 8.4 % (0.0-11.0); NEUTROPHILS # (AUTO) 7.7 K/uL (1.8-8.9); NEUTROPHILS % (AUTO) 77.6 % (38.5-71.5); PLATELET COUNT (AUTO) 385 K/uL (152-348); RED BLOOD CELL COUNT(AUTO) 4.07 MIL/uL (4.06-5.63); WHITE BLOOD COUNT (AUTO) 9.9 K/uL (3.6-10.2)
[2020-08-04 07:34] LABS: CREATININE 1.2 mg/dL (0.6-1.3); POTASSIUM 5.2 mmol/L (3.5-5.1)
[2020-08-04] MEDS: CHOLECALCIFEROL 1,000 UNIT TABLET PO SCH (09:40)
[2020-08-04] MEDS: FINASTERIDE 5 MG TABLET PO SCH (09:40)
[2020-08-04] MEDS: ASPIRIN 81 MG TAB.CHEW PO SCH (09:40)
[2020-08-04] MEDS: DOCUSATE SODIUM 100 MG CAPSULE PO SCH ×2 (09:40→16:38)
[2020-08-04] MEDS ORDERED: SODIUM POLYSTYRENE SULFONATE 15 G/60 ML LIQUID UDC PO ONE (09:45)
[2020-08-04] MEDS: GLUCERNA SHAKE VANILLA 237 ML CAN PO SCH (09:46)
[2020-08-04] MEDS: ENOXAPARIN SODIUM 40 MG/0.4 ML DISP.SYRIN SQ SCH (09:47)
--- NOTE | 2020-08-04 10:00 | NUR ---
Received pt in bed, awake, A&Ox4, able to verbalize needs. COVID isolation implemented. No acute distress, no SOB. Pt on 25 L High Flow NC with 30% FiO2, O2 saturation 98%. Pt currently SR on Tele monitor. No complaints of pain or discomfort at this time. Scheduled medications administered per order, pt adherent, no a/r noted. Safety measures and fall precautions in place. Belongings and call light in reach, call light usage reinforced, pt verbalized understanding. Will continue to monitor.
[2020-08-04] MEDS: FLUCONAZOLE 200 MG TABLET PO SCH ×2 (10:20→20:18)
[2020-08-04] MEDS: prednisoLONE ACET 1% OPHT DROP 5 ML BOTTLE LEFTEYE SCH ×2 (10:22→20:30)
[2020-08-04] MEDS: OLOPATADINE 0.1% OPHT DROP 5 ML BOTTLE LEFTEYE SCH ×2 (10:22→20:30)
[2020-08-04] MEDS: FLUTICASONE PROP NASAL SPRAY 16 GM BOTTLE NS SCH (10:22)
[2020-08-04] MEDS: DEXAMETHASONE SOD PHOSPHATE 10 MG INJ IV SCH (10:24)
[2020-08-04] MEDS: METOPROLOL TARTRATE 25 MG TABLET PO SCH ×2 (10:48→16:55)
[2020-08-04 11:36] VITALS: BP 123/68
[2020-08-04 14:59] LABS: LYMPHOCYTES % (MANUAL) 18 % (20-40); MONOCYTES % (MANUAL) 10 % (2-10); NEUTROPHILS % (MANUAL) 72 % (42-75)
[2020-08-04 16:00] VITALS: BP 138/71
--- NOTE | 2020-08-04 19:00 | NUR ---
EOSS: Pt in bed, no s/s of acute distress. Needs met promptly during shift. COVID isolation maintained throughout shift. R FA IV patent and intact. Pt tolerated meals and fluids well. Medications administered per order, pt adherent. Dr Mayen examined pt this am, per Dr. Mayen, titrate O2 to 5L NC with respiratory. Per respiratory, high flow O2 switched to 6 L NC, pt O2 saturation 99%. Pt currently on 5 L NC, O2 saturation 98%, denies SOB. Safety measures and fall precautions maintained. Call light within reach. Will endorse care to rn homecare.
[2020-08-04] MEDS: TAMSULOSIN HCL 0.4 MG CAP.SR.24H PO SCH (20:18)
[2020-08-04] MEDS: MONTELUKAST SODIUM 10 MG TABLET PO SCH (20:19)
[2020-08-04] MEDS: SENNOSIDES/DOCUSATE SODIUM TABLET PO SCH (20:19)
[2020-08-04 20:24] VITALS: BP 122/64
[2020-08-04] MEDS: ATROPINE SULFATE 1% OPHT DROP 2 ML RIGHTEYE SCH (20:29)
[2020-08-05 00:08] VITALS: BP 125/50
[2020-08-05 04:24] VITALS: BP 129/66
[2020-08-05] MEDS: ACETAMINOPHEN 325 MG TABLET PO PRN (05:09)
[2020-08-05] MEDS: PANTOPRAZOLE SODIUM 40 MG TABLET.DR PO SCH (05:11)
--- NOTE | 2020-08-05 06:28 | NUR ---
Pt rested well in between care; no acute distress; tolerated 5LNC; pt requesting for shower; will endorse; safety maintained; continue to monitor; continue plan of care
[2020-08-05 07:02] LABS: HEMATOCRIT 37.9 % (36.7-47.1); HEMOGLOBIN 12.9 g/dL (12.5-16.3); LYMPHOCYTES # (AUTO) 1.5 K/uL (20.0-40.0); MEAN CORPUSCULAR HEMOGLOBIN 31.9 uug (23.8-33.4); MEAN CORPUSCULAR HGB CONC 34 g/dL (32.5-36.3); MEAN CORPUSCULAR VOLUME 94.1 fL (73.0-96.2); MONOCYTES # (AUTO) 0.9 K/uL (2.0-10.0); MONOCYTES % (AUTO) 8.6 % (0.0-11.0); NEUTROPHILS # (AUTO) 8.4 K/uL (1.8-8.9); NEUTROPHILS % (AUTO) 77.4 % (38.5-71.5); PLATELET COUNT (AUTO) 350 K/uL (152-348); RED BLOOD CELL COUNT(AUTO) 4.03 MIL/uL (4.06-5.63); WHITE BLOOD COUNT (AUTO) 10.8 K/uL (3.6-10.2)
[2020-08-05 07:19] LABS: CREATININE 1.2 mg/dL (0.6-1.3); POTASSIUM 4.3 mmol/L (3.5-5.1)
[2020-08-05] MEDS: DOCUSATE SODIUM 100 MG CAPSULE PO SCH ×2 (09:48→17:42)
[2020-08-05] MEDS: FLUCONAZOLE 200 MG TABLET PO SCH ×2 (09:48→20:09)
[2020-08-05] MEDS: FINASTERIDE 5 MG TABLET PO SCH (09:48)
[2020-08-05] MEDS: ASPIRIN 81 MG TAB.CHEW PO SCH (09:48)
[2020-08-05] MEDS: CHOLECALCIFEROL 1,000 UNIT TABLET PO SCH (09:48)
[2020-08-05] MEDS: DEXAMETHASONE SOD PHOSPHATE 10 MG INJ IV SCH (09:48)
[2020-08-05] MEDS: METOPROLOL TARTRATE 25 MG TABLET PO SCH ×2 (09:51→17:42)
[2020-08-05] MEDS: ENOXAPARIN SODIUM 40 MG/0.4 ML DISP.SYRIN SQ SCH (09:51)
[2020-08-05] MEDS: FLUTICASONE PROP NASAL SPRAY 16 GM BOTTLE NS SCH (10:03)
[2020-08-05] MEDS: prednisoLONE ACET 1% OPHT DROP 5 ML BOTTLE LEFTEYE SCH ×2 (10:03→20:10)
[2020-08-05] MEDS: OLOPATADINE 0.1% OPHT DROP 5 ML BOTTLE LEFTEYE SCH ×2 (10:03→20:10)
[2020-08-05] MEDS: GLUCERNA SHAKE VANILLA 237 ML CAN PO SCH (10:04)
[2020-08-05 12:00] VITALS: BP 106/55
[2020-08-05 16:00] VITALS: BP 110/77
--- NOTE | 2020-08-05 19:32 | NUR ---
Patient handoff to ALAN Justice. Bj Limon RN
[2020-08-05 20:00] VITALS: BP 104/71
[2020-08-05] MEDS: MONTELUKAST SODIUM 10 MG TABLET PO SCH (20:09)
[2020-08-05] MEDS: ATROPINE SULFATE 1% OPHT DROP 2 ML RIGHTEYE SCH (20:10)
[2020-08-05] MEDS: SENNOSIDES/DOCUSATE SODIUM TABLET PO SCH (20:10)
[2020-08-05] MEDS: TAMSULOSIN HCL 0.4 MG CAP.SR.24H PO SCH (20:10)
[2020-08-05 20:26] LABS: BAND % (MANUAL) 1 % (0-10); LYMPHOCYTES % (MANUAL) 16 % (20-40); MONOCYTES % (MANUAL) 2 % (2-10); NEUTROPHILS % (MANUAL) 81 % (42-75)
[2020-08-06] VITALS: BP 131/63
[2020-08-06 05:27] VITALS: BP 111/66
[2020-08-06] MEDS: PANTOPRAZOLE SODIUM 40 MG TABLET.DR PO SCH (06:11)
--- NOTE | 2020-08-06 06:37 | NUR ---
Pt stable throughout the shift. Pt is on 5L NC, tolerating well. Denies any acute distress. Isolation, Fall and aspiration precaution maintained. Sinus Max 56 on tele monitor. Safety measures in place. Call light within reach. Will endorse to oncoming nurse.
[2020-08-06 07:10] LABS: BASOPHILS % (AUTO) 0.1 % (0.0-2.0); EOSINOPHILS % (AUTO) 0.1 % (0.0-7.0); HEMATOCRIT 38.2 % (36.7-47.1); HEMOGLOBIN 12.8 g/dL (12.5-16.3); LYMPHOCYTES # (AUTO) 1.3 K/uL (20.0-40.0); LYMPHOCYTES % (AUTO) 12.1 % (20.5-51.5); MEAN CORPUSCULAR HEMOGLOBIN 31.3 uug (23.8-33.4); MEAN CORPUSCULAR HGB CONC 33 g/dL (32.5-36.3); MEAN CORPUSCULAR VOLUME 93.7 fL (73.0-96.2); MONOCYTES # (AUTO) 0.8 K/uL (2.0-10.0); MONOCYTES % (AUTO) 7.1 % (0.0-11.0); NEUTROPHILS # (AUTO) 8.9 K/uL (1.8-8.9); NEUTROPHILS % (AUTO) 80.6 % (38.5-71.5); PLATELET COUNT (AUTO) 316 K/uL (152-348); RED BLOOD CELL COUNT(AUTO) 4.07 MIL/uL (4.06-5.63)
[2020-08-06 07:45] LABS: CREATININE 0.9 mg/dL (0.6-1.3); PHOSPHOROUS 3.5 mg/dL (2.5-4.9); POTASSIUM 4.5 mmol/L (3.5-5.1); URIC ACID 5.8 mg/dL (3.5-7.2)
[2020-08-06] MEDS: ASPIRIN 81 MG TAB.CHEW PO SCH (09:19)
[2020-08-06] MEDS: FINASTERIDE 5 MG TABLET PO SCH (09:19)
[2020-08-06] MEDS: DOCUSATE SODIUM 100 MG CAPSULE PO SCH ×2 (09:19→16:50)
[2020-08-06] MEDS: CHOLECALCIFEROL 1,000 UNIT TABLET PO SCH (09:19)
[2020-08-06] MEDS: GLUCERNA SHAKE VANILLA 237 ML CAN PO SCH (09:20)
[2020-08-06] MEDS: FLUTICASONE PROP NASAL SPRAY 16 GM BOTTLE NS SCH (09:20)
[2020-08-06] MEDS: METOPROLOL TARTRATE 25 MG TABLET PO SCH ×2 (09:20→16:51)
[2020-08-06] MEDS: FLUCONAZOLE 200 MG TABLET PO SCH ×2 (09:20→20:37)
[2020-08-06] MEDS: OLOPATADINE 0.1% OPHT DROP 5 ML BOTTLE LEFTEYE SCH ×2 (09:21→21:10)
[2020-08-06] MEDS: prednisoLONE ACET 1% OPHT DROP 5 ML BOTTLE LEFTEYE SCH ×2 (09:21→21:09)
[2020-08-06] MEDS: ENOXAPARIN SODIUM 40 MG/0.4 ML DISP.SYRIN SQ SCH (09:22)
[2020-08-06] MEDS: DEXAMETHASONE 4 MG TABLET PO SCH (09:24)
[2020-08-06 12:00] VITALS: BP 103/58
[2020-08-06 15:51] VITALS: BP 115/62
--- NOTE | 2020-08-06 19:50 | NUR ---
PATIENT ALERT ORIENTED, NO SOB NO CHEST PAIN, TELE MONITOR SINUS RHYTHM, NO COMPLAIN OF PAIN, REMAINS OF DROPLET PRECAUTION, CALL LIGHT WITHIN REACH. PATIENT REFUSED TO ASK FOR ASSISTANCE WHEN GOING TO THE TOILET, WOULD TO DO IT ON HIS OWN. PATIENT SAID "I'M EARNEST", CONT TO MONITOR.
[2020-08-06 20:18] VITALS: BP 117/61
[2020-08-06] MEDS: MONTELUKAST SODIUM 10 MG TABLET PO SCH (20:37)
[2020-08-06] MEDS: TAMSULOSIN HCL 0.4 MG CAP.SR.24H PO SCH (20:37)
[2020-08-06] MEDS: SENNOSIDES/DOCUSATE SODIUM TABLET PO SCH (20:37)
[2020-08-06] MEDS: ATROPINE SULFATE 1% OPHT DROP 2 ML RIGHTEYE SCH (21:09)
[2020-08-07 00:06] VITALS: BP 140/62
[2020-08-07 04:00] VITALS: BP 120/72
[2020-08-07 06:09] LABS: POTASSIUM 4.7 mmol/L (3.5-5.1)
[2020-08-07 06:10] LABS: HEMATOCRIT 37.6 % (36.7-47.1); HEMOGLOBIN 12.6 g/dL (12.5-16.3); LYMPHOCYTES # (AUTO) 1.2 K/uL (20.0-40.0); LYMPHOCYTES % (AUTO) 10.5 % (20.5-51.5); MEAN CORPUSCULAR HEMOGLOBIN 31.3 uug (23.8-33.4); MEAN CORPUSCULAR HGB CONC 33 g/dL (32.5-36.3); MEAN CORPUSCULAR VOLUME 93.7 fL (73.0-96.2); MONOCYTES # (AUTO) 0.7 K/uL (2.0-10.0); MONOCYTES % (AUTO) 6.2 % (0.0-11.0); NEUTROPHILS # (AUTO) 9.2 K/uL (1.8-8.9); NEUTROPHILS % (AUTO) 83.3 % (38.5-71.5); PLATELET COUNT (AUTO) 283 K/uL (152-348); RED BLOOD CELL COUNT(AUTO) 4.01 MIL/uL (4.06-5.63); WHITE BLOOD COUNT (AUTO) 11.1 K/uL (3.6-10.2)
--- NOTE | 2020-08-07 06:17 | NUR ---
PATIENT ALERT ORIENTED, NO SOB NO CHEST PAIN, PATIENT TELE MONITOR SINUS RHYTHM WITH SINUS DEE. PATIENT SATURATING 98%, ENCOURAGED PATIENT TO ASK FOR HELP WHEN GOING TO THE TOILET, TO PREVENT SOB DURING ACTIVITY. CONT TO MONITOR.
[2020-08-07] MEDS: PANTOPRAZOLE SODIUM 40 MG TABLET.DR PO SCH (07:00)
--- NOTE | 2020-08-07 08:00 | NUR ---
Awake, alert, oriented x 4, on moderate high back rest. O2 at 5L/NC with O2 sat of 97%. O2 titrated to 4L/NC.
[2020-08-07] MEDS: FLUCONAZOLE 200 MG TABLET PO SCH ×2 (09:21→20:36)
[2020-08-07] MEDS: DEXAMETHASONE 4 MG TABLET PO SCH (09:21)
[2020-08-07] MEDS: ASPIRIN 81 MG TAB.CHEW PO SCH (09:21)
[2020-08-07] MEDS: DOCUSATE SODIUM 100 MG CAPSULE PO SCH ×2 (09:21→16:43)
[2020-08-07] MEDS: FINASTERIDE 5 MG TABLET PO SCH (09:22)
[2020-08-07] MEDS: CHOLECALCIFEROL 1,000 UNIT TABLET PO SCH (09:22)
[2020-08-07] MEDS: METOPROLOL TARTRATE 25 MG TABLET PO SCH ×2 (09:22→16:47)
[2020-08-07] MEDS: ENOXAPARIN SODIUM 40 MG/0.4 ML DISP.SYRIN SQ SCH (09:23)
[2020-08-07] MEDS: GLUCERNA SHAKE VANILLA 237 ML CAN PO SCH (09:24)
--- NOTE | 2020-08-07 10:00 | NUR ---
O2 at 4L/NC 98%, titrated to O2 at 3L/NC
[2020-08-07] MEDS: prednisoLONE ACET 1% OPHT DROP 5 ML BOTTLE LEFTEYE SCH ×2 (10:02→20:40)
[2020-08-07] MEDS: OLOPATADINE 0.1% OPHT DROP 5 ML BOTTLE LEFTEYE SCH ×2 (10:02→20:40)
[2020-08-07] MEDS: FLUTICASONE PROP NASAL SPRAY 16 GM BOTTLE NS SCH (10:03)
--- NOTE | 2020-08-07 12:00 | NUR ---
O2 at 3L/NC with O2 sat of 99%, O2 titrated to 2L/NC
--- NOTE | 2020-08-07 13:00 | NUR ---
O2 at 2L/NC with O2 sat of 92-94%, noted SOB at rest, O2 increased to 2.5L/NC per patient's request
[2020-08-07 14:05] VITALS: BP 117/66
[2020-08-07 17:19] VITALS: BP 115/62
--- NOTE | 2020-08-07 18:22 | NUR ---
O2 maintained at 2.5L/NC with O2 sat of 95-96%. Eating fairly. Afebrile
--- NOTE | 2020-08-07 19:30 | NUR ---
Received pt in bed, awake, A&Ox4, able to make needs known. On oxygen at 2.5LPM via NC saturating at 97%, noted SOB at rest. NSR on tele at 65/min. No complaints of pain at this moment. Safety measures initiated, call light within reach, will continue to monitor.
[2020-08-07 20:00] VITALS: BP 107/63
[2020-08-07] MEDS: TAMSULOSIN HCL 0.4 MG CAP.SR.24H PO SCH (20:37)
[2020-08-07] MEDS: MONTELUKAST SODIUM 10 MG TABLET PO SCH (20:38)
[2020-08-07] MEDS: ATROPINE SULFATE 1% OPHT DROP 2 ML RIGHTEYE SCH (20:41)
[2020-08-07] MEDS: SENNOSIDES/DOCUSATE SODIUM TABLET PO SCH ×2 (20:42→20:45)
--- NOTE | 2020-08-07 20:46 | NUR ---
Pt refused Senokot S saying " My BM is good. i don't want that medication because I go everyday".
[2020-08-08 00:26] VITALS: BP 117/73
[2020-08-08 04:00] VITALS: BP 105/66
--- NOTE | 2020-08-08 06:18 | NUR ---
Pt in bed, awake, verbally responsive. on oxygen at 2.5LPM saturating 97%, no s/s of respiratory distress, no pain or discomfort noted, NSR on tele 7at 70/min, safety measures maintained, call light within reach, all needs attended.
[2020-08-08] MEDS: PANTOPRAZOLE SODIUM 40 MG TABLET.DR PO SCH (06:30)
[2020-08-08 07:24] LABS: BASOPHILS % (AUTO) 0.1 % (0.0-2.0); HEMATOCRIT 40.8 % (36.7-47.1); HEMOGLOBIN 13.5 g/dL (12.5-16.3); LYMPHOCYTES # (AUTO) 1.3 K/uL (20.0-40.0); LYMPHOCYTES % (AUTO) 9.8 % (20.5-51.5); MEAN CORPUSCULAR HEMOGLOBIN 31.1 uug (23.8-33.4); MEAN CORPUSCULAR HGB CONC 33 g/dL (32.5-36.3); MEAN CORPUSCULAR VOLUME 93.8 fL (73.0-96.2); MONOCYTES # (AUTO) 0.7 K/uL (2.0-10.0); MONOCYTES % (AUTO) 5.2 % (0.0-11.0); NEUTROPHILS # (AUTO) 10.9 K/uL (1.8-8.9); NEUTROPHILS % (AUTO) 84.9 % (38.5-71.5); PLATELET COUNT (AUTO) 287 K/uL (152-348); RED BLOOD CELL COUNT(AUTO) 4.35 MIL/uL (4.06-5.63); WHITE BLOOD COUNT (AUTO) 12.8 K/uL (3.6-10.2)
[2020-08-08 07:28] LABS: CARBON DIOXIDE 27 mmol/L (21-32); CHLORIDE 95 mmol/L (98-107); CREATININE 1.1 mg/dL (0.6-1.3); GLUCOSE 110 mg/dL (74-106); UREA NITROGEN, BLOOD 40 mg/dL (7-18)
[2020-08-08] MEDS ORDERED: SODIUM POLYSTYRENE SULFONATE 15 G/60 ML LIQUID UDC PO ONE (08:00)
[2020-08-08] MEDS ORDERED: FUROSEMIDE 20 MG/2 ML VIAL IV ONE (08:15)
[2020-08-08] MEDS: METOPROLOL TARTRATE 25 MG TABLET PO SCH ×2 (09:12→17:00)
[2020-08-08] MEDS: DOCUSATE SODIUM 100 MG CAPSULE PO SCH ×2 (09:12→17:13)
[2020-08-08] MEDS: FINASTERIDE 5 MG TABLET PO SCH (09:12)
[2020-08-08] MEDS: DEXAMETHASONE 4 MG TABLET PO SCH (09:12)
[2020-08-08] MEDS: CHOLECALCIFEROL 1,000 UNIT TABLET PO SCH (09:12)
[2020-08-08] MEDS: ASPIRIN 81 MG TAB.CHEW PO SCH (09:12)
[2020-08-08] MEDS: FLUCONAZOLE 200 MG TABLET PO SCH ×2 (09:13→20:26)
[2020-08-08] MEDS: GLUCERNA SHAKE VANILLA 237 ML CAN PO SCH (09:13)
[2020-08-08] MEDS: FLUTICASONE PROP NASAL SPRAY 16 GM BOTTLE NS SCH (09:14)
[2020-08-08] MEDS: prednisoLONE ACET 1% OPHT DROP 5 ML BOTTLE LEFTEYE SCH ×2 (09:14→22:34)
[2020-08-08] MEDS: OLOPATADINE 0.1% OPHT DROP 5 ML BOTTLE LEFTEYE SCH ×2 (09:14→22:34)
[2020-08-08] MEDS: ENOXAPARIN SODIUM 40 MG/0.4 ML DISP.SYRIN SQ SCH (09:22)
[2020-08-08 12:00] VITALS: BP 103/62
[2020-08-08 16:21] VITALS: BP 100/58
[2020-08-08] MEDS: SENNOSIDES/DOCUSATE SODIUM TABLET PO SCH (20:25)
[2020-08-08] MEDS: MONTELUKAST SODIUM 10 MG TABLET PO SCH (20:25)
[2020-08-08] MEDS: TAMSULOSIN HCL 0.4 MG CAP.SR.24H PO SCH (20:26)
[2020-08-08 20:27] VITALS: BP 109/53
[2020-08-08] MEDS: BENZONATATE 100 MG CAPSULE PO PRN (20:57)
[2020-08-08] MEDS: ATROPINE SULFATE 1% OPHT DROP 2 ML RIGHTEYE SCH (22:34)
[2020-08-09 00:26] VITALS: BP 108/67
[2020-08-09 04:40] VITALS: BP 106/70
[2020-08-09] MEDS: PANTOPRAZOLE SODIUM 40 MG TABLET.DR PO SCH (06:05)
--- NOTE | 2020-08-09 06:59 | NUR ---
Patient slept well through out the night.No s/s of distress.On O2 inhalation at 2.5L saturating well at 96%.Due meds given. Continue safety measures.Call light with in reach.Will endorse to oncoming shift.
[2020-08-09 07:03] LABS: HEMOGLOBIN 14.4 g/dL (12.5-16.3); LYMPHOCYTES # (AUTO) 1.6 K/uL (20.0-40.0); LYMPHOCYTES % (AUTO) 11.3 % (20.5-51.5); MEAN CORPUSCULAR HEMOGLOBIN 31.1 uug (23.8-33.4); MEAN CORPUSCULAR HGB CONC 33 g/dL (32.5-36.3); MEAN CORPUSCULAR VOLUME 95.3 fL (73.0-96.2); MONOCYTES # (AUTO) 0.8 K/uL (2.0-10.0); MONOCYTES % (AUTO) 5.9 % (0.0-11.0); NEUTROPHILS # (AUTO) 11.8 K/uL (1.8-8.9); NEUTROPHILS % (AUTO) 82.8 % (38.5-71.5); PLATELET COUNT (AUTO) 275 K/uL (152-348); RED BLOOD CELL COUNT(AUTO) 4.62 MIL/uL (4.06-5.63); WHITE BLOOD COUNT (AUTO) 14.2 K/uL (3.6-10.2)
[2020-08-09 07:13] LABS: CREATININE 1.3 mg/dL (0.6-1.3); POTASSIUM 5.1 mmol/L (3.5-5.1)
--- NOTE | 2020-08-09 08:00 | NUR ---
PATIENT AOX4, AWAKE IN BED. ABLE TO TAKE MEDICATIONS ORDERED. NO SIGNS OF DISTRESS AT THIS TIME. DENIES PAIN AT THIS TIME. CALL LIGHT IN REACH. BED IN LOW AND LOCKED POSITION. ALL NEEDS MET AT THIS TIME. WILL CONTINUE TO MONITOR.
[2020-08-09] MEDS: CHOLECALCIFEROL 1,000 UNIT TABLET PO SCH (08:51)
[2020-08-09] MEDS: FINASTERIDE 5 MG TABLET PO SCH (08:51)
[2020-08-09] MEDS: DOCUSATE SODIUM 100 MG CAPSULE PO SCH ×2 (08:51→17:04)
[2020-08-09] MEDS: DEXAMETHASONE 4 MG TABLET PO SCH (08:51)
[2020-08-09] MEDS: ASPIRIN 81 MG TAB.CHEW PO SCH (08:51)
[2020-08-09] MEDS: METOPROLOL TARTRATE 25 MG TABLET PO SCH ×2 (08:52→17:00)
[2020-08-09] MEDS: ENOXAPARIN SODIUM 40 MG/0.4 ML DISP.SYRIN SQ SCH (08:53)
[2020-08-09] MEDS: prednisoLONE ACET 1% OPHT DROP 5 ML BOTTLE LEFTEYE SCH (08:54)
[2020-08-09] MEDS: OLOPATADINE 0.1% OPHT DROP 5 ML BOTTLE LEFTEYE SCH (08:54)
[2020-08-09] MEDS: FLUTICASONE PROP NASAL SPRAY 16 GM BOTTLE NS SCH (08:54)
[2020-08-09] MEDS: GLUCERNA SHAKE VANILLA 237 ML CAN PO SCH (08:55)
[2020-08-09] MEDS: FLUCONAZOLE 200 MG TABLET PO SCH (08:56)
[2020-08-09] MEDS ORDERED: ALBUTEROL SULFATE 8 GM HFA.AER.AD IH PRN (10:00)
[2020-08-09 11:39] VITALS: BP 103/60
[2020-08-09] MEDS ORDERED: ALBU8HFA4 IH (13:07)
[2020-08-09] MEDS ORDERED: FLUC200T PO (13:07)
[2020-08-09] MEDS ORDERED: METH4TAB3 PO (13:07)
[2020-08-09 16:00] VITALS: BP 103/48
[2020-08-09 17:00] VITALS: BP 98/57
--- NOTE | 2020-08-09 19:04 | NUR ---
PATIENT DISCHARGED TO [facility]. DISCHARGE INSTRUCTIONS SENT WITH PATIENT. PATIENT LEFT VIA AMBULANCE. BELONGINGS LEFT WITH PATIENT. PATIENT LEFT IN STABLE CONDITION WITH VS STABLE. IV DC AND ARM BAND REMOVED UPON DISCHARGE. REPORT GIVEN TO SN[facility] NURSE.
== END 2020-08-09 19:43 | DRG 177 ==
LOC: TELE3 12:53
PROVIDERS: ATTEND Nurse Practitioner Acute Care
PROC: XW033H5 Introduction of Tocilizumab into Peripheral Vein, Percutaneous Approach, New Technology Group 5 (ICD-10-PCS; principal; 2020-07-27)
DX: U07.1 COVID-19 (principal); J12.82 Pneumonia due to coronavirus disease 2019; J96.01 Acute respiratory failure with hypoxia; G92 Toxic encephalopathy; E43 Unspecified severe protein-calorie malnutrition; J15.9 Unspecified bacterial pneumonia; J45.901 Unspecified asthma with (acute) exacerbation; D68.69 Other thrombophilia; E22.2 Syndrome of inappropriate secretion of antidiuretic hormone; B38.2 Pulmonary coccidioidomycosis, unspecified; D63.8 Anemia in other chronic diseases classified elsewhere; I10 Essential (primary) hypertension; I25.10 Atherosclerotic heart disease of native coronary artery without angina pectoris; K21.9 Gastro-esophageal reflux disease without esophagitis; M19.90 Unspecified osteoarthritis, unspecified site; Z87.01 Personal history of pneumonia (recurrent); Z95.1 Presence of aortocoronary bypass graft; F41.9 Anxiety disorder, unspecified; E88.09 Other disorders of plasma-protein metabolism, not elsewhere classified; N40.0 Benign prostatic hyperplasia without lower urinary tract symptoms; H54.62 Unqualified visual loss, left eye, normal vision right eye; E11.9 Type 2 diabetes mellitus without complications; H40.9 Unspecified glaucoma; E86.1 Hypovolemia; R53.1 Weakness; Z68.24 Body mass index [BMI] 24.0-24.9, adult
CPT/HCPCS: 36415; 70030-TC; 71045; 71275; 83615; 83735; 84100; 84132; 84300; 84550; 85025; 86140; 86480; 87086; 87328; 94640; A4663; G0378; J1100; J1200; J1450; J1650; J1940; J2650; J3262; J3490; J3535; J7050; J8540; Q9967